=== PATIENT | male | born 1975 | race Caucasian/White ===

== ENCOUNTER 2023-01-09 00:02 | Emergency (ER) | payer OTHER ==
--- OUTSIDE RECORDS SUMMARY | 2023-01-09 00:14 | XMS REPORT | Continuity of Care Document ---
:1975 Author Organization [facility] t Address [address] [place] [address] [address] [place] [address] Care Team Providers Name Role Phone Carmella Moise MD Primary Care Physician [phone] Carmella Moise MD Attending Clinician [phone] CARMELLA MOISE Attending Clinician Unavailable Willa Gallardo MD Attending Clinician WILLA GALLARDO Attending Clinician Unavailable Doctor Unassigned, [place] Attending Clinician Unavailable May Attending Clinician Unavailable Cassie Mayo Attending Clinician [phone] CASSIE WOO Attending Clinician Unavailable Unknown, Attending Attending Clinician Unavailable CLARK WRIGHT Attending Clinician Unavailable ODETTE LOUIS Attending Clinician Unavailable Zach Davila MD Attending Clinician ZACH DAVILA Attending Clinician Unavailable Odette Beckford Attending Clinician [facility] Attending Clinician Unavailable Tonya Archer RN Attending Clinician Unavailable LISA NEELY Attending Clinician Unavailable Only, [facility] Attending Clinician Unavailable UNKNOWN, ATTENDING Attending Clinician Unavailable LATISHA WARREN Attending Clinician Unavailable Therapy, [facility] Attending Clinician Unavailable Zehra Lepe MD Attending Clinician ZEHRA LEPE Attending Clinician Unavailable Binta White Attending Clinician PEMA VALVERDE Attending Clinician Unavailable BELLA GARCIA Attending Clinician Unavailable MICHELLE COVARRUBIAS Attending Clinician Unavailable ZAC SAMPSON Attending Clinician Unavailable Nadia Ortega MD, Danisha Attending Clinician ISAURA GATES Attending Clinician Unavailable ZACH DAVILA Admitting Clinician Unavailable Payers Payer Name Policy Type Policy Number Effective Date Expiration Date S ource Problems Condition Condition Condition Status Onset Resolution Last Treating Co mments Source Name Details Category Date Date Treatment Clinician Date Nocturia Nocturia Disease Active 2015-02 Unive rs 0-01 ity of 00:00: [place] 00 [facility] Insomnia Insomnia Disease Active 2015-02 Unive rs 0-01 ity of 00:00: [address] Allergies, Adverse Reactions, Alerts Allergy Allergy Status Severity Reaction(s) Onset Inactive Treating Comm ents Source Name Type Date Date Clinician NO KNOWN Drug Active Univers ALLERGIE Class ity of S [facility] Social History Social Habit Start Date Stop Date Quantity Comments Source Gender identity Universit y of [facility] Sexual orientation Univer sity of [facility] History SDOH University o [facility] University o f Alcohol Std Drinks [facility] History SDOH University o f Alcohol Binge [facility] [place] History of Social 2022-09-05 2022-09-05 Univers ity of function 00:00:00 00:00:00 [facility] Alcohol intake 2022-09-05 2022-09-05 Current drinker Unive rsity of 00:00:00 00:00:[address] [facility] [place] (finding) Branch Exposure to 2022-04-14 2022-04-24 Not sure University of SARS-CoV-2 (event) 00:00:00 12:54:00 [facility] Cigarettes smoked 2021-11-14 2021-11-14 Univers ity of current (pack per 00:00:00 00:00:00 [facility] ) - Reported Branch Cigarette 2021-11-14 2021-11-14 University of pack-years 00:00:00 00:00:00 [facility] Tobacco use and 2021-11-14 2021-11-14 Smokeless Universit y of exposure 00:00:00 00:00:00 tobacco [facility] [place] Alcohol Comment 2018-06-10 2018-06-10 4-5 mixed drinks Uni versity of 00:00:00 00:00:00 2x/year [facility] History of tobacco 2012-02-26 Cigarette Smoker University of use 00:00:00 [facility] Sex Ass[birth year] Universit y of 00:00:00 00:00:00 [facility] Smoking Status Start Date Stop Date Source Ex-smoker 2021-11-14 00:00:00 2021-11-14 00:00:[address] [facility] Medications Ordered Filled Start Stop Current Ordering Indication Dosage Frequency Signature Comments Components Source Medication Medication Date Date Medication? Clinician (SIG) Name Name ALPRAZolam 2022-02 Yes [id number] .5mg Take 1 U nivers 0.5 mg 1-10 tablet by ity of tablet 00:00: mouth at [place] 00 bedtime as Medical needed for Branch Other (anxiousne ss). ALPRAZolam 2022-02 Yes [id number] .5mg Take 1 U nivers 0.5 mg 1-10 tablet by ity of tablet 00:00: mouth at [place] 00 bedtime as Medical needed for Branch Other (anxiousne ss). phentermine 2022-02 Yes [id number] 37.5mg Take 1 Univers 37.5 mg 0-22 capsule by ity of capsule 00:00: mouth [place] 00 every Medical morning. Branch phentermine 2022-02 Yes [id number] 37.5mg Take 1 Univers 37.5 mg 0-22 capsule by ity of capsule 00:00: mouth [place] 00 every Medical morning. Branch phentermine 2022-02 Yes [id number] 37.5mg Take 1 Univers 37.5 mg 0-22 capsule by ity of capsule 00:00: mouth [place] 00 every Medical morning. Branch valACYclovi Yes [id number] 500mg Take 1 Univers r (VALTREX) 9-07 tablet by ity of 500 mg 00:00: mouth in [place] tablet 00 the Medical morning. Branch phentermine Yes [id number] 37.5mg Take 1 Univers 37.5 mg 9-07 capsule by ity of capsule 00:00: mouth [place] 00 every Medical morning. Branch valACYclovi Yes [id number] 500mg Take 1 Univers r (VALTREX) 9-07 tablet by ity of 500 mg 00:00: mouth in [place] tablet 00 the Medical morning. Branch phentermine 2022-0 Yes [id number] 37.5mg Take 1 Univers 37.5 mg 9-07 capsule by ity of capsule 00:00: mouth [place] 00 every Medical morning. Branch valACYclovi 2022-0 Yes [id number] 500mg Take 1 Univers r (VALTREX) 9-07 tablet by ity of 500 mg 00:00: mouth in [place] tablet 00 the Medical morning. Branch valACYclovi 2022-0 Yes [id number] 500mg Take 1 Univers r (VALTREX) 9-07 tablet by ity of 500 mg 00:00: mouth in [place] tablet 00 the Medical morning. Branch valACYclovi 2022-0 Yes [id number] 500mg Take 1 Univers r (VALTREX) 9-07 tablet by ity of 500 mg 00:00: mouth in [place] tablet 00 the Medical morning. Branch phentermine 2022- No [id number] 37.5mg Take 1 Univers 37.5 mg 9-07 10-21 capsule by ity o f capsule 00:00: 00:00 mouth [place] 00 :00 every Medical morning. Branch ALPRAZolam 2022-0 Yes [id number] .5mg Take 1 U nivers 0.5 mg 9-01 tablet by ity of tablet 00:00: mouth at [place] 00 bedtime as Medical needed for Branch Other (anxiousne ss). ALPRAZolam 2022-0 Yes [id number] .5mg Take 1 U nivers 0.5 mg 9-01 tablet by ity of tablet 00:00: mouth at [place] 00 bedtime as Medical needed for Branch Other (anxiousne ss). ALPRAZolam 2022-0 Yes [id number] .5mg Take 1 U nivers 0.5 mg 9-01 tablet by ity of tablet 00:00: mouth at [place] 00 bedtime as Medical needed for Branch Other (anxiousne ss). ALPRAZolam 2022-0 Yes [id number] .5mg Take 1 U nivers 0.5 mg 9-01 tablet by ity of tablet 00:00: mouth at [place] 00 bedtime as Medical needed for Branch Other (anxiousne ss). ALPRAZolam 2022-0 2023- No [id number] .5mg Take 1 Univers 0.5 mg 9-01 11-09 tablet by ity of tablet 00:00: 00:00 mouth at [place] 00 :00 bedtime as Medical needed for Branch Other (anxiousne ss). phentermine 3-0 Yes [id number] 37.5mg Take 1 Univers 37.5 mg 8-09 capsule by ity of capsule 00:00: mouth [place] 00 every Medical morning. Branch phentermine 3-0 Yes [id number] 37.5mg Take 1 Univers 37.5 mg 8-09 capsule by ity of capsule 00:00: mouth [place] 00 every Medical morning. Branch phentermine 2023-0 Yes [id number] 37.5mg Take 1 Univers 37.5 mg 8-09 capsule by ity of capsule 00:00: mouth [place] 00 every Medical morning. Branch phentermine 3-0 Yes [id number] 37.5mg Take 1 Univers 37.5 mg 8-09 capsule by ity of capsule 00:00: mouth [place] 00 every Medical morning. Branch phentermine 3-0 3- No [id number] 37.5mg Take 1 Univers 37.5 mg 8-09 09-06 capsule by ity o f capsule 00:00: 00:00 mouth [place] 00 :00 every Medical morning. Branch phentermine 3-0 Yes [id number] 37.5mg Take 1 Univers 37.5 mg 7-27 capsule by ity of capsule 00:00: mouth [place] 00 every Medical morning. Branch phentermine 3-0 Yes [id number] 37.5mg Take 1 Univers 37.5 mg 7-27 capsule by ity of capsule 00:00: mouth [place] 00 every Medical morning. Branch phentermine 3-0 Yes [id number] 37.5mg Take 1 Univers 37.5 mg 7-27 capsule by ity of capsule 00:00: mouth [place] 00 every Medical morning. Branch phentermine 3-0 2023- No [id number] 37.5mg Take 1 Univers 37.5 mg 7-27 08-09 capsule by ity o f capsule 00:00: 00:00 mouth [place] 00 :00 every Medical morning. Branch phentermine 3-0 Yes [id number] 15mg Take 1 Univers 15 mg 7-14 capsule by ity of capsule 00:00: mouth [place] 00 every Medical morning. Branch phentermine 2023-0 Yes [id number] 15mg Take 1 Univers 15 mg 7-14 capsule by ity of capsule 00:00: mouth [place] 00 every Medical morning. Branch phentermine 0 Yes [id number] 15mg Take 1 Univers 15 mg 7-14 capsule by ity of capsule 00:00: mouth [place] 00 every Medical morning. Branch phentermine 2022- No [id number] 15mg Take 1 Univers 15 mg 7-14 08-09 capsule by ity of capsule 00:00: 00:00 mouth [place] 00 :00 every Medical morning. Branch ALPRAZolam Yes [id number] .5mg Take 1 U nivers 0.5 mg 7-12 tablet by ity of tablet 00:00: mouth at [place] 00 bedtime as Medical needed for Branch Other (anxiousne ss). valACYclovi Yes [id number] 500mg Take 1 Univers r (VALTREX) 7-12 tablet by ity of 500 mg 00:00: mouth in [place] tablet 00 the Medical morning. Branch gabapentin Yes [id number] 300mg Take 1 Univers 300 mg 7-12 capsule by ity of capsule 00:00: mouth at [place] 00 bedtime. Medical Branch ALPRAZolam Yes [id number] .5mg Take 1 U nivers 0.5 mg 7-12 tablet by ity of tablet 00:00: mouth at [place] 00 bedtime as Medical needed for Branch Other (anxiousne ss). valACYclovi Yes [id number] 500mg Take 1 Univers r (VALTREX) 7-12 tablet by ity of 500 mg 00:00: mouth in [place] tablet 00 the Medical morning. Branch gabapentin Yes [id number] 300mg Take 1 Univers 300 mg 7-12 capsule by ity of capsule 00:00: mouth at [place] 00 bedtime. Medical Branch ALPRAZolam Yes [id number] .5mg Take 1 U nivers 0.5 mg 7-12 tablet by ity of tablet 00:00: mouth at [place] 00 bedtime as Medical needed for Branch Other (anxiousne ss). valACYclovi Yes [id number] 500mg Take 1 Univers r (VALTREX) 7-12 tablet by ity of 500 mg 00:00: mouth in [place] tablet 00 the Medical morning. Branch gabapentin 2022-0 Yes [id number] 300mg Take 1 Univers 300 mg 7-12 capsule by ity of capsule 00:00: mouth at [place] 00 bedtime. Medical Branch ALPRAZolam 0 Yes [id number] .5mg Take 1 U nivers 0.5 mg 7-12 tablet by ity of tablet 00:00: mouth at [place] 00 bedtime as Medical needed for Branch Other (anxiousne ss). valACYclovi 2022-0 Yes [id number] 500mg Take 1 Univers r (VALTREX) 7-12 tablet by ity of 500 mg 00:00: mouth in [place] tablet 00 the Medical morning. Branch gabapentin 0 Yes [id number] 300mg Take 1 Univers 300 mg 7-12 capsule by ity of capsule 00:00: mouth at [place] 00 bedtime. Medical Branch ALPRAZolam Yes [id number] .5mg Take 1 U nivers 0.5 mg 7-12 tablet by ity of tablet 00:00: mouth at [place] 00 bedtime as Medical needed for Branch Other (anxiousne ss). valACYclovi 0 Yes [id number] 500mg Take 1 Univers r (VALTREX) 7-12 tablet by ity of 500 mg 00:00: mouth in [place] tablet 00 the Medical morning. Branch gabapentin 0 Yes [id number] 300mg Take 1 Univers 300 mg 7-12 capsule by ity of capsule 00:00: mouth at [place] 00 bedtime. Medical Branch ALPRAZolam 0 Yes [id number] .5mg Take 1 U nivers 0.5 mg 7-12 tablet by ity of tablet 00:00: mouth at [place] 00 bedtime as Medical needed for Branch Other (anxiousne ss). valACYclovi 2022-0 Yes [id number] 500mg Take 1 Univers r (VALTREX) 7-12 tablet by ity of 500 mg 00:00: mouth in [place] tablet 00 the Medical morning. Branch gabapentin 0 Yes [id number] 300mg Take 1 Univers 300 mg 7-12 capsule by ity of capsule 00:00: mouth at [place] 00 bedtime. Medical Branch ALPRAZolam 2022-0 Yes [id number] .5mg Take 1 U nivers 0.5 mg 7-12 tablet by ity of tablet 00:00: mouth at [place] 00 bedtime as Medical needed for Branch Other (anxiousne ss). valACYclovi 2022-0 Yes [id number] 500mg Take 1 Univers r (VALTREX) 7-12 tablet by ity of 500 mg 00:00: mouth in [place] tablet 00 the Medical morning. Branch gabapentin 2022-0 Yes [id number] 300mg Take 1 Univers 300 mg 7-12 capsule by ity of capsule 00:00: mouth at [place] 00 bedtime. Medical Branch ALPRAZolam 2022-0 Yes [id number] .5mg Take 1 U nivers 0.5 mg 7-12 tablet by ity of tablet 00:00: mouth at [place] 00 bedtime as Medical needed for Branch Other (anxiousne ss). valACYclovi 2022-0 Yes [id number] 500mg Take 1 Univers r (VALTREX) 7-12 tablet by ity of 500 mg 00:00: mouth in [place] tablet 00 the Medical morning. Branch gabapentin 2022-0 Yes [id number] 300mg Take 1 Univers 300 mg 7-12 capsule by ity of capsule 00:00: mouth at [place] 00 bedtime. Medical Branch valACYclovi 2022-0 Yes [id number] 500mg Take 1 Univers r (VALTREX) 7-12 tablet by ity of 500 mg 00:00: mouth in [place] tablet 00 the Medical morning. Branch gabapentin 2022-0 Yes [id number] 300mg Take 1 Univers 300 mg 7-12 capsule by ity of capsule 00:00: mouth at [place] 00 bedtime. Medical Branch gabapentin 2022-0 Yes [id number] 300mg Take 1 Univers 300 mg 7-12 capsule by ity of capsule 00:00: mouth at [place] 00 bedtime. Medical Branch gabapentin 2022-0 Yes [id number] 300mg Take 1 Univers 300 mg 7-12 capsule by ity of capsule 00:00: mouth at [place] 00 bedtime. Medical Branch gabapentin 2022-0 Yes [id number] 300mg Take 1 Univers 300 mg 7-12 capsule by ity of capsule 00:00: mouth at [place] 00 bedtime. Medical Branch gabapentin 2022-0 Yes [id number] 300mg Take 1 Univers 300 mg 7-12 capsule by ity of capsule 00:00: mouth at [place] 00 bedtime. Medical Branch gabapentin 2022-0 Yes [id number] 300mg Take 1 Univers 300 mg 7-12 capsule by ity of capsule 00:00: mouth at [place] 00 bedtime. Medical Branch valACYclovi 2022- No [id number] 500mg Take 1 Univers r (VALTREX) 09-05 tablet by it y of 500 mg 00:00: 00:00 mouth in [place] tablet 00 :00 the Medical morning. Branch ALPRAZolam 2022- No [id number] .5mg Take 1 Univers 0.5 mg 09-05 tablet by ity of tablet 00:00: 00:00 mouth at [place] 00 :00 bedtime as Medical needed for Branch Other (anxiousne ss). sulfamethox 2022- No [id number] 1{tbl} Take 1 Univers azole-trime 7-12 07-20 tablet by it y of thoprim 00:00: 04:59 mouth in [place] (BACTRIM 00 :00 the Medical DS) 800-160 morning Branc h mg per and 1 tablet tablet in the evening. Do all this for 7 days. sulfamethox 2022- No [id number] 1{tbl} Take 1 Univers azole-trime 7-12 07-20 tablet by it y of thoprim 00:00: 04:59 mouth in [place] (BACTRIM 00 :00 the Medical DS) 800-160 morning Branc h mg per and 1 tablet tablet in the evening. Do all this for 7 days. sulfamethox 2022- No [id number] 1{tbl} Take 1 Univers azole-trime 7-12 07-20 tablet by it y of thoprim 00:00: 04:59 mouth in [place] (BACTRIM 00 :00 the Medical DS) 800-160 morning Branc h mg per and 1 tablet tablet in the evening. Do all this for 7 days. sulfamethox 2022- No [id number] 1{tbl} Take 1 Univers azole-trime 7-12 07-20 tablet by it y of thoprim 00:00: 04:59 mouth in [place] (BACTRIM 00 :00 the Medical DS) 800-160 morning Branc h mg per and 1 tablet tablet in the evening. Do all this for 7 days. semaglutide 2022- No [id number] .25mg inject Univers , weight 7-12 07-14 0.25 mg ity of loss, 00:00: 00:00 under the [place] ([facility]) 00 :00 skin Medical 0.25 mg/0.5 weekly. Branc h mL PnIj SC injection semaglutide 3-0 3- No [id number] .25mg inject Univers , weight 7-12 07-14 0.25 mg ity of loss, 00:00: 00:00 under the [place] ([facility]) 00 :00 skin Medical 0.25 mg/0.5 weekly. Branc h mL PnIj SC injection semaglutide 3-0 3- No [id number] .25mg inject Univers , weight 7-12 07-14 0.25 mg ity of loss, 00:00: 00:00 under the [place] () 00 :00 skin Medical 0.25 mg/0.5 weekly. Branc h mL PnIj SC injection phentermine 2023-0 Yes [id number] 37.5mg Take 1 Univers 37.5 mg 3-30 capsule by ity of capsule 00:00: mouth [place] 00 every Medical morning. Branch phentermine 2023-0 Yes [id number] 37.5mg Take 1 Univers 37.5 mg 3-30 capsule by ity of capsule 00:00: mouth [place] 00 every Medical morning. Branch phentermine 2023-0 2023- No [id number] 37.5mg Take 1 Univers 37.5 mg 3-30 07-12 capsule by ity o f capsule 00:00: 00:00 mouth [place] 00 :00 every Medical morning. Branch phentermine 2023-0 2023- No [id number] 37.5mg Take 1 Univers 37.5 mg 3-30 07-12 capsule by ity o f capsule 00:00: 00:00 mouth [place] 00 :00 every Medical morning. Branch methylPREDN 2023-0 Yes [id number] Take by Univers ISolone 2-28 mouth ity of (MEDROL, 00:00: SEE-INSTRU [place] CASSANDRA,) 4 mg 00 CTIONS. Medica l tablets follow Branch package directions methylPREDN 2023-0 Yes [id number] Take by Univers ISolone 2-28 mouth ity of (MEDROL, 00:00: SEE-INSTRU [place] CASSANDRA,) 4 mg 00 CTIONS. Medica l tablets follow Branch package directions methylPREDN 3-0 Yes [id number] Take by [facility] ISolone 2-28 mouth ity of (MEDROL, 00:00: SEE-INSTRU [place] CASSANDRA,) 4 mg 00 CTIONS. Medica l tablets follow Branch package directions methylPREDN 3-0 Yes [id number] [facility] (MEDROL, 00:00: SEE-INSTRU [place]AN[place],) 4 mg 00 CTIONS. Medica l tablets follow Branch package directions methylPREDN 3-0 Yes [id number] [facility]y [facility] (MEDROL, 00:00: SEE-INSTRU [place],) 4 mg 00 CTIONS. Medica l tablets follow Branch package directions methylPREDN 3-0 Yes [id number] Take by [facility] ISolone 2-28 mouth ity of (MEDROL, 00:00: SEE-INSTRU [place]AN[place],) 4 mg 00 CTIONS. Medica l tablets follow Branch package directions methylPREDN 3-0 Yes [id number] Take by [facility] 2-28 mouth ity of (MEDROL, 00:00: SEE-INSTRU [place]AN[place],) 4 mg 00 CTIONS. Medica l tablets follow Branch package directions methylPREDN 3-0 2023- No [id number] Take by [facility] 2-28 07-12 mouth ity of (MEDROL, 00:00: 00:[place] 4 mg 00 :00 CTIONS. Medica l tablets follow Branch package directions methylPREDN 3-0 2023- No [id number] Take by [facility] 2-28 07-12 mouth ity of (MEDROL, 00:00: 00:[place] CASSANDRA[place] 4 mg 00 :00 CTIONS. Medica l tablets follow Branch package directions phentermine 2022-0 Yes [id number] 37.5mg Take 1 Univers 37.5 mg 2-26 capsule by ity of capsule 00:00: mouth [place] 00 every Medical morning. Branch valACYclovi 2022-0 Yes [id number] 500mg Take 1 Univers r (VALTREX) 2-26 tablet by ity of 500 mg 00:00: mouth in [place] tablet 00 the Medical morning. Branch phentermine 3-0 Yes [id number] 37.5mg Take 1 Univers 37.5 mg 2-26 capsule by ity of capsule 00:00: mouth [place] 00 every Medical morning. Branch valACYclovi 2022-0 Yes [id number] 500mg Take 1 Univers r (VALTREX) 2-26 tablet by ity of 500 mg 00:00: mouth in [place] tablet 00 the Medical morning. Branch phentermine 2022-0 Yes [id number] 37.5mg Take 1 Univers 37.5 mg 2-26 capsule by ity of capsule 00:00: mouth [place] 00 every Medical morning. Branch valACYclovi 2022-0 Yes [id number] 500mg Take 1 Univers r (VALTREX) 2-26 tablet by ity of 500 mg 00:00: mouth in [place] tablet 00 the Medical morning. Branch valACYclovi 2022-0 Yes [id number] 500mg Take 1 Univers r (VALTREX) 2-26 tablet by ity of 500 mg 00:00: mouth in [place] tablet 00 the Medical morning. Branch valACYclovi 2022-0 Yes [id number] 500mg Take 1 Univers r (VALTREX) 2-26 tablet by ity of 500 mg 00:00: mouth in [place] tablet 00 the Medical morning. Branch phentermine 2022-0 Yes [id number] 37.5mg Take 1 Univers 37.5 mg 2-26 capsule by ity of capsule 00:00: mouth [place] 00 every Medical morning. Branch valACYclovi 2022-0 Yes [id number] 500mg Take 1 Univers r (VALTREX) 2-26 tablet by ity of 500 mg 00:00: mouth in [place] tablet 00 the Medical morning. Branch phentermine 3-0 Yes [id number] 37.5mg Take 1 Univers 37.5 mg 2-26 capsule by ity of capsule 00:00: mouth [place] 00 every Medical morning. Branch valACYclovi 2022-0 Yes [id number] 500mg Take 1 Univers r (VALTREX) 2-26 tablet by ity of 500 mg 00:00: mouth in [place] tablet 00 the Medical morning. Branch phentermine 3-0 Yes [id number] 37.5mg Take 1 Univers 37.5 mg 2-26 capsule by ity of capsule 00:00: mouth [place] 00 every Medical morning. Branch valACYclovi Yes [id number] 500mg Take 1 Univers r (VALTREX) 2-26 tablet by ity of 500 mg 00:00: mouth in [place] tablet 00 the Medical morning. Branch phentermine Yes [id number] 37.5mg Take 1 Univers 37.5 mg 2-26 capsule by ity of capsule 00:00: mouth [place] 00 every Medical morning. Branch valACYclovi Yes [id number] 500mg Take 1 Univers r (VALTREX) 2-26 tablet by ity of 500 mg 00:00: mouth in [place] tablet 00 the Medical morning. Branch valACYclovi 2022- No [id number] 500mg Take 1 Univers r (VALTREX) 2-26 07-12 tablet by it y of 500 mg 00:00: 00:00 mouth in [place] tablet 00 :00 the Medical morning. Branch valACYclovi 2022- No [id number] 500mg Take 1 Univers r (VALTREX) 2-26 07-12 tablet by it y of 500 mg 00:00: 00:00 mouth in [place] tablet 00 :00 the Medical morning. Branch phentermine 2022- No [id number] 37.5mg Take 1 Univers 37.5 mg 2-26 03-28 capsule by ity o f capsule 00:00: 00:00 mouth [place] 00 :00 every Medical morning. Branch phentermine Yes [id number] 37.5mg Take 1 Univers 37.5 mg 1-26 capsule by ity of capsule 00:00: mouth [place] 00 every Medical morning. Branch phentermine 2022- No [id number] 37.5mg Take 1 Univers 37.5 mg 1-26 02-22 capsule by ity o f capsule 00:00: 00:00 mouth [place] 00 :00 every Medical morning. Branch phentermine 2022- No [id number] 37.5mg Take 1 Univers 37.5 mg 1-26 02-22 capsule by ity o f capsule 00:00: 00:00 mouth [place] 00 :00 every Medical morning. Branch ALPRAZolam Yes [id number] .5mg Take 1 U nivers 0.5 mg 1-24 tablet by ity of tablet 00:00: mouth at [place] 00 bedtime as Medical needed for Branch Other (anxiousne ss). nystatin 2022-0 Yes [id number] Swish and Univers 100,000 1-24 spit 5 ml ity of unit/mL 00:00: three [place] suspension 00 times Medical daily for Branch 1 week ALPRAZolam 2022-0 Yes [id number] .5mg Take 1 U nivers 0.5 mg 1-24 tablet by ity of tablet 00:00: mouth at [place] 00 bedtime as Medical needed for Branch Other (anxiousne ss). nystatin 2022-0 Yes [id number] Swish and Univers 100,000 1-24 spit 5 ml ity of unit/mL 00:00: three [place] suspension 00 times Medical daily for Branch 1 week ALPRAZolam 2022-0 Yes [id number] .5mg Take 1 U nivers 0.5 mg 1-24 tablet by ity of tablet 00:00: mouth at [place] 00 bedtime as Medical needed for Branch Other (anxiousne ss). nystatin 2022-0 Yes [id number] Swish and Univers 100,000 1-24 spit 5 ml ity of unit/mL 00:00: three [place] suspension 00 times Medical daily for Branch 1 week ALPRAZolam 2022-0 Yes [id number] .5mg Take 1 U nivers 0.5 mg 1-24 tablet by ity of tablet 00:00: mouth at [place] 00 bedtime as Medical needed for Branch Other (anxiousne ss). nystatin 2022-0 Yes [id number] Swish and Univers 100,000 1-24 spit 5 ml ity of unit/mL 00:00: three [place] suspension 00 times Medical daily for Branch 1 week ALPRAZolam 2022-0 Yes [id number] .5mg Take 1 U nivers 0.5 mg 1-24 tablet by ity of tablet 00:00: mouth at [place] 00 bedtime as Medical needed for Branch Other (anxiousne ss). phentermine 2022-0 Yes [id number] 15mg Take 1 U nivers 15 mg 1-24 capsule by ity of capsule 00:00: mouth [place] 00 every Medical morning. Branch nystatin 2022-0 Yes [id number] Swish and Univers 100,000 1-24 spit 5 ml ity of unit/mL 00:00: three [place] suspension 00 times Medical daily for Branch 1 week valACYclovi 2022-0 Yes [id number] 500mg Take 1 Univers r (VALTREX) 1-24 tablet by ity of 500 mg 00:00: mouth in [place] tablet 00 the Medical morning. Branch ALPRAZolam 0 Yes [id number] .5mg Take 1 U nivers 0.5 mg 1-24 tablet by ity of tablet 00:00: mouth at [place] 00 bedtime as Medical needed for Branch Other (anxiousne ss). nystatin 2022-0 Yes [id number] [facility] 100,000 1-24 spit 5 ml ity of unit/mL 00:00: three [place] suspension 00 times Medical daily for Branch 1 week valACYclovi 2022-0 Yes [id number] 500mg Take 1 [facility] r (VALTREX) 1-24 tablet by ity of 500 mg 00:00: mouth in [place] tablet 00 the Medical morning. Branch ALPRAZolam Yes [id number] .5mg Take 1 [facility] nivers 0.5 mg 1-24 tablet by ity of tablet 00:00: mouth at [place] 00 bedtime as Medical needed for Branch Other (anxiousne ss). nystatin 2022-0 Yes [id number] [facility] 100,000 1-24 spit 5 ml ity of unit/mL 00:00: three [place] suspension 00 times Medical daily for Branch 1 week ALPRAZolam 0 Yes [id number] .5mg Take 1 [facility] nivers 0.5 mg 1-24 tablet by ity of tablet 00:00: mouth at [place] 00 bedtime as Medical needed for Branch Other (anxiousne ss). nystatin 2022-0 Yes [id number] [facility] 100,000 1-24 spit 5 ml ity of unit/mL 00:00: three [place] suspension 00 times Medical daily for Branch 1 week ALPRAZolam 2022-0 Yes [id number] .5mg Take 1 [facility] nivers 0.5 mg 1-24 tablet by ity of tablet 00:00: mouth at [place] 00 bedtime as Medical needed for Branch Other (anxiousne ss). nystatin 2022-0 Yes [id number] [facility] 100,000 1-24 spit 5 ml ity of unit/mL 00:00: three [place] suspension 00 times Medical daily for Branch 1 week ALPRAZolam 2022-0 Yes [id number] .5mg Take 1 [facility] nivers 0.5 mg 1-24 tablet by ity of tablet 00:00: mouth at [place] 00 bedtime as Medical needed for Branch Other (anxiousne ss). nystatin 2022-0 Yes [id number] [facility] 100,000 1-24 spit 5 ml ity of unit/mL 00:00: three [place] suspension 00 times Medical daily for Branch 1 week ALPRAZolam 2022-0 Yes [id number] .5mg Take 1 [facility] n[facility] 0.5 mg 1-24 tablet by ity of tablet 00:00: mouth at [place] 00 bedtime as Medical needed for Branch Other (anxiousne ss). nystatin 2022-0 Yes [id number] [facility] 100,000 1-24 spit 5 ml ity of unit/mL 00:00: three [place] suspension 00 times Medical daily for Branch 1 week ALPRAZolam 2022-0 Yes [id number] .5mg Take 1 [facility] 0.5 mg 1-24 tablet by ity of tablet 00:00: mouth at [place] 00 bedtime as Medical needed for Branch Other (anxiousne ss). nystatin 2022-0 Yes [id number] [facility] 100,000 1-24 spit 5 ml ity of unit/mL 00:00: three [place] suspension 00 times Medical daily for Branch 1 week ALPRAZolam 2022-0 3- No [id number] .5mg Take 1 [facility] 0.5 mg 1-24 07-12 tablet by ity of tablet 00:00: 00:00 mouth at [place] 00 :00 bedtime as Medical needed for Branch Other (anxiousne ss). nystatin 2022-0 2023- No [id number] [facility] 100,000 1-24 07-12 spit 5 ml ity of unit/mL 00:00: 00:00 three [place] suspension 00 :00 times Medical daily for Branch 1 week ALPRAZolam 2022-0 2023- No [id number] .5mg Take 1 [facility] 0.5 mg 1-24 07-12 tablet by ity of tablet 00:00: 00:00 mouth at [place] 00 :00 bedtime as Medical needed for Branch Other (anxiousne ss). nystatin 2022-0 3- No [id number] [facility] 100,000 1-24 07-12 spit 5 ml ity of unit/mL 00:00: 00:00 three [place] suspension 00 :00 times Medical daily for Branch 1 week valACYclovi 2022-2022- No [id number] 500mg Take 1 [facility] r (VALTREX) 03-20 tablet by it y of 500 mg 00:00: 00:00 mouth in [place] tablet 00 :00 the Medical morning. Branch valACYclovi 0 2022- No [id number] 500mg Take 1 [facility] r (VALTREX) 03-20 tablet by it y of 500 mg 00:00: 00:00 mouth in [place] tablet 00 :00 the Medical morning. Branch phentermine 2022- No [id number] 15mg Take 1 [facility] 15 mg 03-20 capsule by ity of capsule 00:00: 00:00 mouth [place] 00 :00 every Medical morning. Branch nystatin Yes [id number] [facility] 100,000 1-23 spit 5 ml ity of unit/mL 00:00: three [place] suspension 00 times Medical daily for Branch 1 week phentermine Yes [id number] 15mg Take 1 [facility] nivers 15 mg 1-23 capsule by ity of capsule 00:00: mouth [place] 00 every Medical morning. Branch ALPRAZolam Yes [id number] .5mg Take 1 [facility] 0.5 mg 1-23 tablet by ity of tablet 00:00: mouth at [place] 00 bedtime as Medical needed for Branch Other (anxiousne ss). nystatin Yes [id number] [facility] 100,000 1-23 spit 5 ml ity of unit/mL 00:00: three [place] suspension 00 times Medical daily for Branch 1 week phentermine Yes [id number] 15mg Take 1 [facility] nivers 15 mg 1-23 capsule by ity of capsule 00:00: mouth [place] 00 every Medical morning. Branch ALPRAZolam Yes [id number] .5mg Take 1 [facility] 0.5 mg 1-23 tablet by ity of tablet 00:00: mouth at [place] 00 bedtime as Medical needed for Branch Other (anxiousne ss). nystatin 2022- No [id number] [facility] 100,000 1-23 01-24 spit 5 ml ity of unit/mL 00:00: 00:00 three [place] suspension 00 :00 times Medical daily for Branch 1 week phentermine 2022- No [id number] 15mg Take 1 [facility] 15 mg 03-19 capsule by ity of capsule 00:00: 00:00 mouth [place] 00 :00 every Medical morning. Branch ALPRAZolam 2022- No [id number] .5mg Take 1 [facility] 0.5 mg 03-19 tablet by ity of tablet 00:00: 00:00 mouth at [place] 00 :00 bedtime as Medical needed for Branch Other (anxiousne ss). chlorhexidi 2021-02 Yes [id number] 15mL [facility] ne 0.12 % 1-30 spit out ity of mouthwash 00:00: [place] 00 the Medical morning Branch and 15 mL in the evening. chlorhexidi 2021-02 Yes [id number] 15mL [facility] ne 0.12 % 1-30 spit out it[facility] of mouthwash 00:00: [place] 00 the Medical morning Branch and 15 mL in the evening. chlorhexidi 2021-02 Yes [id number] 15mL [facility] ne 0.12 % 1-30 spit out it[facility] of mouthwash 00:00: [place] 00 the Medical morning Branch and 15 mL in the evening. chlorhexidi 2021-02 Yes [id number] 15mL [facility] ne 0.12 % 1-30 spit out it[facility] of mouthwash 00:00: [place] 00 the Medical morning Branch and 15 mL in the evening. chlorhexidi 2021-02 Yes [id number] 15mL [facility] ne 0.12 % 1-30 spit out it[facility] of mouthwash 00:00: [place] 00 the Medical morning Branch and 15 mL in the evening. chlorhexidi 2021-02 Yes [id number] 15mL [facility] ne 0.12 % 1-30 spit out it[facility] of mouthwash 00:00: [place] 00 the Medical morning Branch and 15 mL in the evening. chlorhexidi 2021-02 Yes [id number] 15mL [facility] ne 0.12 % 130 spit out it[facility] of mouthwash 00:00: [place] 00 the Medical morning Branch and 15 mL in the evening. chlorhexidi 2021-02 Yes [id number] 15mL [facility] ne 0.12 % -30 spit out it[facility] of mouthwash 00:00: [place] 00 the Medical morning Branch and 15 mL in the evening. chlorhexidi 2021-02 Yes [id number] 15mL [facility] ne 0.12 % 1-30 spit out it[facility] of mouthwash 00:00: [place] 00 the Medical morning Branch and 15 mL in the evening. chlorhexidi 2021-02- No [id number] 15mL [facility] ne 0.12 % 03-26 spit out ity o f mouthwash 00:00: 00:00 15 mL in [place] 00 :00 the Medical morning Branch and 15 mL in the evening. chlorhexidi 2021-02- No [id number] 15mL [facility] ne 0.12 % 03-26 spit out ity o f mouthwash 00:00: 00:00 15 mL in [place] 00 :00 the Medical morning Branch and 15 mL in the evening. cetirizine 2021-02- No [id number] 10mg Take 1 [facility] (ZYRTEC) 10 03-26 tablet by it y of mg tablet 00:00: 05:59 mouth in [place] 00 :00 the Medical morning Branch for 30 days. cetirizine 2021-02- No [id number] 10mg Take 1 [facility] (ZYRTEC) 10 03-2631 tablet by it y of mg tablet 00:00: 05:59 mouth in [place] 00 :00 the Medical morning Branch for 30 days. cetirizine 2021-02- No [id number] 10mg Take 1 [facility] (ZYRTEC) 10 03-2631 tablet by it y of mg tablet 00:00: 05:59 mouth in [place] 00 :00 the Medical morning Branch for 30 days. fluticasone 2021-02- No [id number] 1{spray Use 1 [facility] propionate 1-30 1208 } [place] in ity of (FLONASE 00:00: 05:59 each [place] ALLERGY 00 :00 nostril in Medica l RELIEF) 50 the Branch mcg/actuati morning on nasal for 7 spray days. fluticasone 2021-02- No [id number] 1{spray Use 1 [facility] propionate -30 12-08 } [place] in ity of (FLONASE 00:00: 05:59 each [place] ALLERGY 00 :00 nostril in Medica l RELIEF) 50 the Branch mcg/actuati morning on nasal for 7 spray days. valACYclovi 2021-02 Yes [id number] 500mg Take 1 [facility] r (VALTREX) 1-07 tablet by ity of 500 mg 00:00: mouth in [place] tablet 00 the Medical morning. [place] valACYclovi 2021-02 Yes [id number] 500mg Take 1 [facility] r (VALTREX) 1-07 tablet by ity of 500 mg 00:00: mouth in [place] tablet 00 the Medical morning. [place] valACYclovi 2021-02 Yes [id number] 500mg Take 1 [facility] r (VALTREX) 1-07 tablet by ity of 500 mg 00:00: mouth in [place] tablet 00 the Medical morning. Branch valACYclovi 2021-02 Yes [id number] 500mg Take 1 [facility] r (VALTREX) 1-07 tablet by ity of 500 mg 00:00: mouth in [place] tablet 00 the Medical morning. [place] valACYclovi 2021-02 Yes [id number] 500mg Take 1 [facility] r (VALTREX) 1-07 tablet by ity of 500 mg 00:00: mouth in [place] tablet 00 the Medical morning. Branch valACYclovi 2021-02 Yes [id number] 500mg Take 1 [facility] r (VALTREX) 1-07 tablet by ity of 500 mg 00:00: mouth in [place] tablet 00 the Medical morning. Branch valACYclovi 2021-02 Yes [id number] 500mg Take 1 [facility] r (VALTREX) 1-07 tablet by ity of 500 mg 00:00: mouth in [place] tablet 00 the Medical morning. Branch valACYclovi 2021-02 Yes [id number] 500mg Take 1 [facility] r (VALTREX) 1-07 tablet by ity of 500 mg 00:00: mouth in [place] tablet 00 the Medical morning. Branch valACYclovi 2021-02 Yes [id number] 500mg Take 1 [facility] r (VALTREX) 1-07 tablet by ity of 500 mg 00:00: mouth in [place] tablet 00 the Medical morning. Branch valACYclovi 2021-02 Yes [id number] 500mg Take 1 [facility] r (VALTREX) 1-07 tablet by ity of 500 mg 00:00: mouth in [place] tablet 00 the Medical morning. Branch valACYclovi 2021-02 Yes [id number] 500mg Take 1 [facility] r (VALTREX) 1-07 tablet by ity of 500 mg 00:00: mouth in [place] tablet 00 the Medical morning. Branch valACYclovi 2021-02 Yes [id number] 500mg Take 1 [facility] r (VALTREX) 1-07 tablet by ity of 500 mg 00:00: mouth in [place] tablet 00 the Medical morning. Branch valACYclovi 2021-02 Yes [id number] 500mg Take 1 [facility] r (VALTREX) 1-07 tablet by ity of 500 mg 00:00: mouth in [place] tablet 00 the Medical morning. Branch valACYclovi 2021-02 Yes [id number] 500mg Take 1 [facility] r (VALTREX) 1-07 tablet by ity of 500 mg 00:00: mouth in [place] tablet 00 the Medical morning. Branch valACYclovi 2021-02 Yes [id number] 500mg Take 1 [facility] r (VALTREX) 1-07 tablet by ity of 500 mg 00:00: mouth in [place] tablet 00 the Medical morning. Branch valACYclovi 2021-023- No [id number] 500mg Take 1 [facility] r (VALTREX) 1-07 01-24 tablet by it y of 500 mg 00:00: 00:00 mouth in [place] tablet 00 :00 the Medical morning. Branch ALPRAZolam Yes TAKE 1 [facility] 0.5 mg 9-27 TABLET BY ity of tablet 00:00: MOUTH ONCE [place] 00 A DAY Medical NEEDED FOR Branch ANXIETY ALPRAZolam Yes TAKE 1 [facility] rs 0.5 mg 9-27 TABLET BY ity of tablet 00:00: MOUTH ONCE [place] 00 A DAY Medical NEEDED FOR Branch ANXIETY ALPRAZolam Yes TAKE 1 [facility] rs 0.5 mg 9-27 TABLET BY ity of tablet 00:00: MOUTH ONCE [place] 00 A DAY Medical NEEDED FOR Branch ANXIETY ALPRAZolam 2022-0 Yes TAKE 1 [facility] rs 0.5 mg 9-27 TABLET BY ity of tablet 00:00: MOUTH ONCE [place] 00 A DAY Medical NEEDED FOR Branch ANXIETY ALPRAZolam Yes TAKE 1 [facility] rs 0.5 mg 9-27 TABLET BY ity of tablet 00:00: MOUTH ONCE [place] 00 A DAY Medical NEEDED FOR Branch ANXIETY ALPRAZolam Yes TAKE 1 [facility] rs 0.5 mg 9-27 TABLET BY ity of tablet 00:00: MOUTH ONCE [place] 00 A DAY Medical NEEDED FOR Branch ANXIETY ALPRAZolam Yes TAKE 1 [facility] rs 0.5 mg 9-27 TABLET BY ity of tablet 00:00: MOUTH ONCE [place] 00 A DAY Medical NEEDED FOR Branch ANXIETY ALPRAZolam Yes TAKE 1 [facility] rs 0.5 mg 9-27 TABLET BY ity of tablet 00:00: MOUTH ONCE [place] 00 A DAY Medical NEEDED FOR Branch ANXIETY ALPRAZolam Yes TAKE 1 [facility] rs 0.5 mg 9-27 TABLET BY ity of tablet 00:00: MOUTH ONCE [place] 00 A DAY Medical NEEDED FOR Branch ANXIETY ALPRAZolam 2022- No TAKE 1 [facility] ers 0.5 mg 9-27 -23 TABLET BY ity of tablet 00:00: 00:00 [place]CE [place] 00 :00 A DAY Medical NEEDED FOR Branch ANXIETY ALPRAZolam 2022- No TAKE 1 [facility] ers 0.5 mg 9-27 -23 TABLET BY ity of tablet 00:00: 00:00 [place]TH [place]CE [place] 00 :00 A DAY Medical NEEDED FOR Branch ANXIETY ciprofloxac 2021- No [id number] 500mg Take 1 [facility] in HCl 500 9-20 10-19 tablet by ity of mg tablet 00:00: 04:59 mouth [place] 00 :00 every 12 Medical (twelve) Branch hours for 28 days. ciprofloxac 2021- No [id number] 500mg Take 1 [facility] in HCl 500 9-20 10-19 tablet by ity of mg tablet 00:00: 04:59 mouth [place] 00 :00 every 12 Medical (twelve) Branch hours for 28 days. tamsulosin 2021- No [id number] .4mg Take 1 [facility] 0.4 mg 24 8-15 -30 capsule by ity of hr capsule 00:00: 04:59 mouth at [place] 00 :00 bedtime Medical for 14 Branch days. tamsulosin 2021- No [id number] .4mg Take 1 [facility] 0.4 mg 24 8-15 -30 capsule by ity of hr capsule 00:00: 04:59 mouth at [place] 00 :00 bedtime Medical for 14 Branch days. sulfamethox 2021- No [id number] 1{tbl} Take 1 [facility] azole-trime 8-15 -26 tablet by it y of thoprim 00:00: 04:59 mouth in [place] 800-160 mg 00 :00 the Medical per tablet morning Branch and 1 tablet in the evening. Do all this for 10 days. sulfamethox 2021- No [id number] 1{tbl} Take 1 [facility] azole-trime 8-15 -26 tablet by it y of thoprim 00:00: 04:59 mouth in [place] 800-160 mg 00 :00 the Medical per tablet morning Branch and 1 tablet in the evening. Do all this for 10 days. valACYclovi Yes [id number] 2 g twice [facility] r (VALTREX) 6-23 daily for ity of 1 gram 00:00: 1 day with [place] tablet 00 onset of Medical cold sore. Branch valACYclovi Yes [id number] 2 g twice [facility] r (VALTREX) 6-23 daily for ity of 1 gram 00:00: 1 day with [place] tablet 00 onset of Medical cold sore. Branch valACYclovi Yes [id number] 2 g twice [facility] r (VALTREX) 6-23 daily for ity of 1 gram 00:00: 1 day with [place] tablet 00 onset of Medical cold sore. Branch valACYclovi Yes [id number] 2 g twice [facility] r (VALTREX) 6-23 daily for ity of 1 gram 00:00: 1 day with [place] tablet 00 onset of Medical cold sore. Branch valACYclovi Yes [id number] 2 g twice [facility] r (VALTREX) 6-23 daily for ity of 1 gram 00:00: 1 day with [place] tablet 00 onset of Medical cold sore. Branch valACYclovi Yes [id number] 2 g twice [facility] r (VALTREX) 6-23 daily for ity of 1 gram 00:00: 1 day with [place] tablet 00 onset of Medical cold sore. Branch valACYclovi Yes [id number] 2 g twice [facility] r (VALTREX) 6-23 daily for ity of 1 gram 00:00: 1 day with [place] tablet 00 onset of Medical cold sore. Branch valACYclovi Yes [id number] 2 g twice [facility] r (VALTREX) 6-23 daily for ity of 1 gram 00:00: 1 day with [place] tablet 00 onset of Medical cold sore. Branch valACYclovi 2021- No [id number] 2 g twice [facility] r (VALTREX) 6-23 11-07 daily for it y of 1 gram 00:00: 00:00 1 [place] tablet 00 :00 onset of Medical cold sore. Branch cetirizine 2019-02- No [id number] 10mg Take 1 [facility] (ZYRTEC) 10 -03-07 tablet by it y of mg tablet 00:00: 05:59 mouth [place] 00 :00 daily for Medical 30 days. Branch Pseudoephed 2019-02- No [id number] 1{tbl} Take 1 [facility] rine-Guaife 04-07 tablet by it y of nesin 00:00: 05:59 mouth 2 [place] (MUCINEX D 00 :00 (two) Medical MAXIMUM times Branch STRENGTH) daily for 120-1,200 10 days. mg tablet benzonatate 2019-02- No [id number] 200mg Take 1 [facility] 200 mg 04-07 capsule by ity of capsule 00:00: 05:59 mouth 3 [place] 00 :00 (three) Medical times Branch daily as needed for Cough for up to 10 days. TRINTELLIX 2019-02 Yes 15mg Take 15 mg U nivers 10 mg Tab 1-16 by mouth ity of 00:00: daily. Medical Branch TRINTELLIX 2019-02 Yes 15mg Take 15 mg U nivers 10 mg Tab 1-16 by mouth ity of 00:00: daily. Medical Branch TRINTELLIX 2019-02 Yes 15mg Take 15 mg U nivers 10 mg Tab 1-16 by mouth ity of 00:00: daily. [place] [facility] Branch TRINTELLIX 2019- Yes 15mg Take 15 mg U nivers 10 mg Tab 1-16 by mouth ity of 00:00: daily. [place] [facility] Branch TRINTELLIX 2019- Yes 15mg Take 15 mg U nivers 10 mg Tab 1-16 by mouth ity of 00:00: daily. [place] [facility] Branch TRINTELLIX 2019- Yes 15mg Take 15 mg U nivers 10 mg Tab 1-16 by mouth ity of 00:00: daily. [place] [facility] Branch TRINTELLIX 2019- Yes 15mg Take 15 mg U nivers 10 mg Tab 1-16 by mouth ity of 00:00: daily. [place] [facility] Branch TRINTELLIX 2019-02 Yes 15mg Take 15 mg U nivers 10 mg Tab 1-16 by mouth ity of 00:00: daily. [place] [facility] TRINTELLIX 2019- Yes 15mg Take 15 mg U nivers 10 mg Tab 1-16 by mouth ity of 00:00: daily. [place] [facility] TRINTELLIX 2019- Yes 15mg Take 15 mg U nivers 10 mg Tab 1-16 by mouth ity of 00:00: daily. [place] [facility] TRINTELLIX 2019- Yes 15mg Take 15 mg U nivers 10 mg Tab 1-16 by mouth ity of 00:00: daily. [place] [facility] TRINTELLIX 2019-02 Yes 15mg Take 15 mg U nivers 10 mg Tab 1-16 by mouth ity of 00:00: daily. [place] [facility] TRINTELLIX 2019- Yes 15mg Take 15 mg U nivers 10 mg Tab 1-16 by mouth ity of 00:00: daily. [place] [facility] TRINTELLIX 2019- Yes 15mg Take 15 mg U nivers 10 mg Tab 1-16 by mouth ity of 00:00: daily. [place] [facility] Branch TRINTELLIX 2019- Yes 15mg Take 15 mg U nivers 10 mg Tab 1-16 by mouth ity of 00:00: daily. [place] [facility] TRINTELLIX 2019- Yes 15mg Take 15 mg U nivers 10 mg Tab 1-16 by mouth ity of 00:00: daily. [place] [facility] Branch TRINTELLIX 2019-02 Yes 15mg Take 15 mg U nivers 10 mg Tab 1-16 by mouth ity of 00:00: daily. Medical Branch TRINTELLIX 2019-02 Yes 15mg Take 15 mg U nivers 10 mg Tab 1-16 by mouth ity of 00:00: daily. [place] [facility] Branch TRINTELLIX 2019-02 Yes 15mg Take 15 mg U nivers 10 mg Tab 1-16 by mouth ity of 00:00: daily. Medical Branch TRINTELLIX 2019-02 Yes 15mg Take 15 mg U nivers 10 mg Tab 1-16 by mouth ity of 00:00: daily. Medical Branch TRINTELLIX 2019-02 Yes 15mg Take 15 mg U nivers 10 mg Tab 1-16 by mouth ity of 00:00: daily. Medical Branch TRINTELLIX 2019-02 Yes 15mg Take 15 mg U nivers 10 mg Tab 1-16 by mouth ity of 00:00: daily. [place] [facility] TRINTELLIX 2019-02 Yes 15mg Take 15 mg U nivers 10 mg Tab 1-16 by mouth ity of 00:00: daily. Medical Branch TRINTELLIX 2019-02 Yes 15mg Take 15 mg U nivers 10 mg Tab 1-16 by mouth ity of 00:00: daily. [place] [facility] Branch TRINTELLIX 2019-02 Yes 15mg Take 15 mg U nivers 10 mg Tab 1-16 by mouth ity of 00:00: daily. [place] [facility] Branch TRINTELLIX 2019-02 Yes 15mg Take 15 mg U nivers 10 mg Tab 1-16 by mouth ity of 00:00: daily. Medical Branch TRINTELLIX 2019-02 Yes 15mg Take 15 mg U nivers 10 mg Tab 1-16 by mouth ity of 00:00: daily. [place] [facility] Branch TRINTELLIX 2019-02 Yes 15mg Take 15 mg U nivers 10 mg Tab 1-16 by mouth ity of 00:00: daily. [place] [facility] Branch TRINTELLIX 2019-02- No 15mg Take 15 mg [facility] 10 mg Tab 1-16 04-24 by mouth ity o f 00:00: 00:00 daily. [place] 00 Medical Branch TRINTELLIX 2020-1 2023- No 15mg Take 15 mg [facility] 10 mg Tab 03-12 by mouth ity o f 00:00: 00:00 daily. [place] 00 :00 [facility] TRINTELLIX 2019-02- No 15mg Take 15 mg [facility] 10 mg Tab 03-12 by mouth ity o f 00:00: 00:00 daily. [place] 00 :00 [facility] trazodone 2019-02- No Univers HCl 03-12 ity of (TRAZODONE 00:00: 00:00 [place] ORAL) 00 :00 [facility] clonazePAM 2019-02 Yes [facility] 0.5 mg 0-29 ity of tablet 00:00: [place] [facility] clonazePAM 2019-02 Yes Univers 0.5 mg 0-29 ity of tablet 00:00: [address] clonazePAM 2019-02 Yes Univers 0.5 mg 0-29 ity of tablet 00:00: [address] clonazePAM 2019-02 Yes Univers 0.5 mg 0-29 ity of tablet 00:00: [address] clonazePAM 2019-02 Yes [facility] 0.5 mg 0-29 ity of tablet 00:00: [address] clonazePAM 2019-02 Yes Univers 0.5 mg 0-29 ity of tablet 00:00: [address] clonazePAM 2019-02 Yes [facility] 0.5 mg 0-29 ity of tablet 00:00: [address] clonazePAM 2019-02 Yes Univers 0.5 mg 0-29 ity of tablet 00:00: [address] clonazePAM 2019-02 Yes [facility] 0.5 mg 0-29 ity of tablet 00:00: [place] [facility] clonazePAM 2019-02 Yes Univers 0.5 mg 0-29 ity of tablet 00:00: [address] clonazePAM 2019-02 Yes [facility] 0.5 mg 0-29 ity of tablet 00:00: [address] clonazePAM 2019-02 Yes [facility] 0.5 mg 0-29 ity of tablet 00:00: [address] clonazePAM 2019-02 Yes Univers 0.5 mg 0-29 ity of tablet 00:00: [address] clonazePAM 2019-02 Yes Univers 0.5 mg 0-29 ity of tablet 00:00: [address] clonazePAM 2019-02 Yes Univers 0.5 mg 0-29 ity of tablet 00:00: [place] 00 Medical Branch clonazePAM 2019-02 Yes [facility] 0.5 mg 0-29 ity of tablet 00:00: [place] [facility] clonazePAM 2019- Yes [facility] 0.5 mg 0-29 ity of tablet 00:00: [place] [facility] clonazePAM 2019-02 Yes [facility] 0.5 mg 0-29 ity of tablet 00:00: [place] 00 Medical Branch clonazePAM 2019-02 Yes [facility] 0.5 mg 0-29 ity of tablet 00:00: [place] [facility] clonazePAM 2019- Yes Univers 0.5 mg 0-29 ity of tablet 00:00: [place] 00 Medical Branch clonazePAM 2019-02 Yes [facility] 0.5 mg 0-29 ity of tablet 00:00: [place] 00 Medical Branch clonazePAM 2019-2022- No Univer s 0.5 mg 0-29 23 ity of tablet 00:00: 00:00 [place] 00 :00 Medical Branch clonazePAM 2019-2022- No Univer s 0.5 mg 0-29 03-19 ity of tablet 00:00: 00:00 [place] 00 :00 Medical Branch clonazePAM 2019-2022- No Univer s 0.5 mg 0-29 03-19 ity of tablet 00:00: 00:00 [place] 00 :00 Medical Branch traZODone 2020-0 Yes 100mg Take 100 Uni vers 50 mg 3-11 mg by ity of tablet 00:00: mouth at [place] [address] bedtime. Medical Branch traZODone 2020-0 Yes 100mg Take 100 Uni vers 50 mg 3-11 mg by ity of tablet 00:00: mouth at [place] [address] bedtime. Medical Branch traZODone 2020-0 Yes 100mg Take 100 Uni vers 50 mg 3-11 mg by ity of tablet 00:00: mouth at [place] [address] bedtime. Medical Branch traZODone 2020-0 Yes 100mg Take 100 Uni vers 50 mg 3-11 mg by ity of tablet 00:00: mouth at [place] [address] bedtime. Medical Branch traZODone 2020-0 Yes 100mg Take 100 Uni vers 50 mg 3-11 mg by ity of tablet 00:00: mouth at [place] [address] bedtime. Medical Branch traZODone 2020-0 Yes 100mg Take 100 Uni vers 50 mg 3-11 mg by ity of tablet 00:00: mouth at [place] [address] bedtime. Medical Branch traZODone 2020-0 Yes 100mg Take 100 Uni vers 50 mg 3-11 mg by ity of tablet 00:00: mouth at [place] [address] bedtime. Medical Branch traZODone 2020-0 Yes 100mg Take 100 Uni vers 50 mg 3-11 mg by ity of tablet 00:00: mouth at [place] [address] bedtime. Medical Branch traZODone 2020-0 Yes 100mg Take 100 Uni vers 50 mg 3-11 mg by ity of tablet 00:00: mouth at [place] [address] bedtime. Medical Branch traZODone 2020-0 Yes 100mg Take 100 Uni vers 50 mg 3-11 mg by ity of tablet 00:00: mouth at [place] [address] bedtime. Medical Branch traZODone 2020-0 Yes 100mg Take 100 Uni vers 50 mg 3-11 mg by ity of tablet 00:00: mouth at [place] [address] bedtime. Medical Branch traZODone 2020-0 Yes 100mg Take 100 Uni vers 50 mg 3-11 mg by ity of tablet 00:00: mouth at [place] [address] bedtime. Medical Branch traZODone 2020-0 Yes 100mg Take 100 Uni vers 50 mg 3-11 mg by ity of tablet 00:00: mouth at [place] [address] bedtime. Medical Branch traZODone 2020-0 Yes 100mg Take 100 Uni vers 50 mg 3-11 mg by ity of tablet 00:00: mouth at [place] [address] bedtime. Medical Branch traZODone 2020-0 Yes 100mg Take 100 Uni vers 50 mg 3-11 mg by ity of tablet 00:00: mouth at [place] [address] bedtime. Medical Branch traZODone 2020-0 Yes 100mg Take 100 Uni vers 50 mg 3-11 mg by ity of tablet 00:00: mouth at [place] [address] bedtime. [facility] traZODone 2020-0 Yes 100mg Take 100 [facility] vers 50 mg 3-11 mg by ity of tablet 00:00: mouth at [place] [address] bedtime. [facility] traZODone 2020-0 Yes 100mg Take 100 [facility] vers 50 mg 3-11 mg by ity of tablet 00:00: mouth at [place] [address] bedtime. [facility] traZODone 2020-0 Yes 100mg Take 100 [facility] vers 50 mg 3-11 mg by ity of tablet 00:00: mouth at [place] 00 bedtime. [facility] traZODone 2020-0 Yes 100mg Take 100 [facility] vers 50 mg 3-11 mg by ity of tablet 00:00: mouth at [place] 00 bedtime. [facility] traZODone 2020-0 Yes 100mg Take 100 [facility] vers 50 mg 3-11 mg by ity of tablet 00:00: mouth at [place] 00 bedtime. [facility] traZODone 2019-0 2022- No 100mg Take 100 [facility] [place] 50 mg 3-11 01-23 mg by ity of tablet 00:00: 00:00 mouth at [place] 00 :00 bedtime. [facility] traZODone 2019-0 2022- No 100mg Take 100 [facility] [place] 50 mg 3-11 01-23 mg by ity of tablet 00:00: 00:00 mouth at [place] 00 :00 bedtime. [facility] traZODone 2019-0 2022- No 100mg Take 100 [facility] [place] 50 mg 3-11 01-23 mg by ity of tablet 00:00: 00:00 mouth at [place] 00 :00 bedtime. [facility] traZODone 0 2022- No 100mg Take 100 [facility] [place] 50 mg 3-11 01-23 mg by ity of tablet 00:00: 00:00 mouth at [place] 00 :00 bedtime. [facility] LATUDA 40 0 2020- No TK 1 T PO Un [place] mg tablet 2-25 02-24 D ity of 00:00: 00:00 [place] 00 :00 [facility] LATUDA 40 2019-0 2020- No TK 1 T PO Un [place] mg tablet 2-25 02-24 D ity of 00:00: 00:00 [place] 00 :00 [facility] hydrOXYzine 2018-02- No TK 1 T PO [facility] 25 mg 2-18 02-24 D PRA ity of tablet 00:00: 00:00 [place] 00 :00 [facility] hydrOXYzine 2018-2020- No TK 1 T PO [facility] 25 mg 2-18 02-24 D PRA ity of tablet 00:00: 00:00 [place] 00 :00 [facility] Immunizations Ordered Filled Date Status Comments Source Immunization Name Immunization Name Influenza Virus 2022-03-19 Completed [facility], 00:00:00 [facility] dical Preserv and ABX Branch Free 6 MO-64 YRS Influenza Virus 2022-03-19 Completed [facility], 00:00:00 [place] [facility] dical Preserv and ABX Branch Free 6 MO-64 YRS Influenza Virus 2022-03-19 Completed [facility], 00:00:00 [place] [facility] Preserv and ABX Branch Free 6 MO-64 YRS Influenza Virus 2022-03-19 Completed [facility], 00:00:00 [place] [facility] dical Preserv and ABX Branch Free 6 MO-64 YRS Influenza Virus 2022-03-19 Completed [facility], 00:00:00 [place] [facility] Preserv and ABX Branch Free 6 MO-64 YRS Influenza Virus 2022-03-19 Completed [facility], 00:00:00 [place] [facility] dical Preserv and ABX Branch Free 6 MO-64 YRS Influenza Virus 2022-03-19 Completed [facility], 00:00:00 [place] [facility] dical Preserv and ABX Branch Free 6 MO-64 YRS Influenza Virus 2022-03-19 Completed [facility], 00:00:00 [place] [facility] dical Preserv and ABX Branch Free 6 MO-64 YRS Influenza Virus 2022-03-19 Completed [facility], 00:00:00 [place] [facility] d[facility] Preserv and ABX Branch Free 6 MO-64 YRS Influenza Virus 2022-03-19 Completed [facility], 00:00:00 [place] [facility] dical Preserv and ABX Branch Free 6 MO-64 YRS Influenza Virus 2022-03-19 Completed [facility], 00:00:00 [place] [facility] dical Preserv and ABX Branch Free 6 MO-64 YRS Influenza Virus 2022-03-19 Completed [facility], 00:00:00 [place] [facility] dical Preserv and ABX Branch Free 6 MO-64 YRS Influenza Virus 2022-03-19 Completed [facility], 00:00:00 [place] [facility] dical Preserv and ABX Branch Free 6 MO-64 YRS Influenza Virus 2022-03-19 Completed [facility], 00:00:00 [place] [facility] dical Preserv and ABX Branch Free 6 MO-64 YRS (FLUCELVAX) Influenza Virus 2022-03-19 Completed [facility], 00:00:00 [place] [facility] dical Preserv and ABX Branch Free 6 MO-64 YRS (FLUCELVAX) Influenza Virus 2022-03-19 Completed [facility], 00:00:00 [place] [facility] dical Preserv and ABX Branch Free 6 MO-64 YRS (FLUCELVAX) Influenza Virus 2022-03-19 Completed [facility], 00:00:00 [place] [facility] dical Preserv and ABX Branch Free 6 MO-64 YRS Influenza Virus 2022-03-19 Completed [facility], 00:00:00 [place] [facility] dical Preserv and ABX Branch Free 6 MO-64 YRS Influenza Virus 2022-03-19 Completed [facility] IM, 00:00:00 [place] [facility] dical Preserv and ABX Branch Free 6 MO-64 YRS Influenza Virus 2022-03-19 Completed [facility]ine [facility] IM, 00:00:00 [place] [facility] dical Preserv and ABX Branch Free 6 MO-64 YRS Influenza Virus 2022-03-19 Completed [facility] IM, 00:00:00 [place] [facility] dical Preserv and ABX Branch Free 6 MO-64 YRS Influenza Virus 2022-03-19 Completed [facility] Vaccine [facility] IM, 00:00:00 [place] [facility] dical Preserv and ABX Branch Free 6 MO-64 YRS Influenza Virus 2022-03-19 Completed [facility], 00:00:00 [place] [facility] dical Preserv and ABX Branch Free 6 MO-64 YRS Influenza Virus 2022-03-19 Completed [facility]ine [facility] IM, 00:00:00 [place] [facility] dical Preserv and ABX Branch Free 6 MO-64 YRS Influenza Virus 2022-03-19 Completed [facility], 00:00:00 [place] [facility] dical Preserv and ABX Branch Free 6 MO-64 YRS Pfizer COVID-19 Pfizer COVID-19 2020-07-11 Completed Vaccine Vaccine 00:00:00 SARS-COV-2 COVID-19 2020-07-11 Completed Unive rsity of PFIZER VACCINE 00:00:00 [place] [facility] SARS-COV-2 COVID-19 2020-07-11 Completed Unive rsity of PFIZER VACCINE 00:00:00 [place] [facility] SARS-COV-2 COVID-19 2020-07-11 Completed Unive rsity of PFIZER VACCINE 00:00:00 [place] [facility] SARS-COV-2 COVID-19 2020-07-11 Completed Unive rsity of PFIZER VACCINE 00:00:00 [place] [facility] SARS-COV-2 COVID-19 2020-07-11 Completed Unive rsity of PFIZER VACCINE 00:00:00 [place] [facility] SARS-COV-2 COVID-19 2020-07-11 Completed Unive rsity of PFIZER VACCINE 00:00:00 [place] [facility] SARS-COV-2 COVID-19 2020-07-11 Completed Unive rsity of PFIZER VACCINE 00:00:00 [place] [facility] SARS-COV-2 COVID-19 2020-07-11 Completed Unive rsity of PFIZER VACCINE 00:00:00 [place] [facility] SARS-COV-2 COVID-19 2020-07-11 Completed Unive rsity of PFIZER VACCINE 00:00:00 [place] [facility] SARS-COV-2 COVID-19 2020-07-11 Completed Unive rsity of PFIZER VACCINE 00:00:00 [place] [facility] SARS-COV-2 COVID-19 2020-07-11 Completed Unive rsity of PFIZER VACCINE 00:00:00 [facility] SARS-COV-2 COVID-19 2020-07-11 Completed Unive rsity of PFIZER VACCINE 00:00:00 [facility] SARS-COV-2 COVID-19 2020-07-11 Completed Unive rsity of PFIZER VACCINE 00:00:00 [facility] SARS-COV-2 COVID-19 2020-07-11 Completed Unive rsity of PFIZER VACCINE 00:00:00 [facility] SARS-COV-2 COVID-19 2020-07-11 Completed Unive rsity of PFIZER VACCINE 00:00:00 [place] [facility] SARS-COV-2 COVID-19 2020-07-11 Completed Unive rsity of PFIZER VACCINE 00:00:00 [place] [facility] SARS-COV-2 COVID-19 2020-07-11 Completed Unive rsity of PFIZER VACCINE 00:00:00 [place] [facility] SARS-COV-2 COVID-19 2020-07-11 Completed Unive rsity of PFIZER VACCINE 00:00:00 [place] [facility] SARS-COV-2 COVID-19 2020-07-11 Completed Unive rsity of PFIZER VACCINE 00:00:00 [place] [facility] SARS-COV-2 COVID-19 2020-07-11 Completed Unive rsity of PFIZER VACCINE 00:00:00 [place] [facility] SARS-COV-2 COVID-19 2020-07-11 Completed Unive rsity of PFIZER VACCINE 00:00:00 [place] [facility] SARS-COV-2 COVID-19 2020-07-11 Completed Unive rsity of PFIZER VACCINE 00:00:00 [place] [facility] SARS-COV-2 COVID-19 2020-07-11 Completed Unive rsity of PFIZER VACCINE 00:00:00 [place] [facility] SARS-COV-2 COVID-19 2020-07-11 Completed Unive rsity of PFIZER VACCINE 00:00:00 [place] [facility] SARS-COV-2 COVID-19 2020-07-11 Completed Unive rsity of PFIZER VACCINE 00:00:00 [place] [facility] SARS-COV-2 COVID-19 2020-07-11 Completed Unive rsity of PFIZER VACCINE 00:00:00 [place] [facility] SARS-COV-2 COVID-19 2020-07-11 Completed Unive rsity of PFIZER VACCINE 00:00:00 [place] [facility] SARS-COV-2 COVID-19 2020-07-11 Completed Unive rsity of PFIZER VACCINE 00:00:00 [place] [facility] SARS-COV-2 COVID-19 2020-07-11 Completed Unive rsity of PFIZER VACCINE 00:00:00 [place] [facility] SARS-COV-2 COVID-19 2020-07-11 Completed Unive rsity of PFIZER VACCINE 00:00:00 [place] [facility] SARS-COV-2 COVID-19 2020-07-11 Completed Unive rsity of PFIZER VACCINE 00:00:00 [place] [facility] SARS-COV-2 COVID-19 2020-07-11 Completed Unive rsity of PFIZER VACCINE 00:00:00 [facility] SARS-COV-2 COVID-19 2020-07-11 Completed Unive rsity of PFIZER VACCINE 00:00:00 [facility] SARS-COV-2 COVID-19 2020-07-11 Completed Unive rsity of PFIZER VACCINE 00:00:00 [facility] SARS-COV-2 COVID-19 2020-07-11 Completed Unive rsity of PFIZER VACCINE 00:00:00 [facility] SARS-COV-2 COVID-19 2020-07-11 Completed Unive rsity of PFIZER VACCINE 00:00:00 [facility] SARS-COV-2 COVID-19 2020-07-11 Completed Unive rsity of PFIZER VACCINE 00:00:00 [facility] SARS-COV-2 COVID-19 2020-07-11 Completed Unive rsity of PFIZER VACCINE 00:00:00 [facility] SARS-COV-2 COVID-19 2020-07-11 Completed Unive rsity of PFIZER VACCINE 00:00:00 [facility] SARS-COV-2 COVID-19 2020-07-11 Completed Unive rsity of PFIZER VACCINE 00:00:00 [facility] SARS-COV-2 COVID-19 2020-07-11 Completed Unive rsity of PFIZER VACCINE 00:00:00 [facility] SARS-COV-2 COVID-19 2020-07-11 Completed Unive rsity of PFIZER VACCINE 00:00:00 [facility] SARS-COV-2 COVID-19 2020-07-11 Completed Unive rsity of PFIZER VACCINE 00:00:00 [facility] SARS-COV-2 COVID-19 2020-07-11 Completed Unive rsity of PFIZER VACCINE 00:00:00 [facility] SARS-COV-2 COVID-19 2020-07-11 Completed Unive rsity of PFIZER VACCINE 00:00:00 [facility] SARS-COV-2 COVID-19 2020-07-11 Completed Unive rsity of PFIZER VACCINE 00:00:00 [facility] Pfizer COVID-19 Pfizer COVID-19 2020-06-20 Completed Vaccine Vaccine 00:00:00 SARS-COV-2 COVID-19 2020-06-20 Completed Unive rsity of PFIZER VACCINE 00:00:00 [facility] SARS-COV-2 COVID-19 2020-06-20 Completed Unive rsity of PFIZER VACCINE 00:00:00 [facility] SARS-COV-2 COVID-19 2020-06-20 Completed Unive rsity of PFIZER VACCINE 00:00:00 [facility] SARS-COV-2 COVID-19 2020-06-20 Completed Unive rsity of PFIZER VACCINE 00:00:00 [facility] SARS-COV-2 COVID-19 2020-06-20 Completed Unive rsity of PFIZER VACCINE 00:00:00 [facility] SARS-COV-2 COVID-19 2020-06-20 Completed Unive rsity of PFIZER VACCINE 00:00:00 [facility] SARS-COV-2 COVID-19 2020-06-20 Completed Unive rsity of PFIZER VACCINE 00:00:00 [facility] SARS-COV-2 COVID-19 2020-06-20 Completed Unive rsity of PFIZER VACCINE 00:00:00 [facility] SARS-COV-2 COVID-19 2020-06-20 Completed Unive rsity of PFIZER VACCINE 00:00:00 [facility] SARS-COV-2 COVID-19 2020-06-20 Completed Unive rsity of PFIZER VACCINE 00:00:00 [facility] SARS-COV-2 COVID-19 2020-06-20 Completed Unive rsity of PFIZER VACCINE 00:00:00 [facility] SARS-COV-2 COVID-19 2020-06-20 Completed Unive rsity of PFIZER VACCINE 00:00:00 [facility] SARS-COV-2 COVID-19 2020-06-20 Completed Unive rsity of PFIZER VACCINE 00:00:00 [facility] SARS-COV-2 COVID-19 2020-06-20 Completed Unive rsity of PFIZER VACCINE 00:00:00 [facility] SARS-COV-2 COVID-19 2020-06-20 Completed Unive rsity of PFIZER VACCINE 00:00:00 [facility] SARS-COV-2 COVID-19 2020-06-20 Completed Unive rsity of PFIZER VACCINE 00:00:00 [facility] SARS-COV-2 COVID-19 2020-06-20 Completed Unive rsity of PFIZER VACCINE 00:00:00 [facility] SARS-COV-2 COVID-19 2020-06-20 Completed Unive rsity of PFIZER VACCINE 00:00:00 [facility] SARS-COV-2 COVID-19 2020-06-20 Completed Unive rsity of PFIZER VACCINE 00:00:00 [facility] SARS-COV-2 COVID-19 2020-06-20 Completed Unive rsity of PFIZER VACCINE 00:00:00 [facility] SARS-COV-2 COVID-19 2020-06-20 Completed Unive rsity of PFIZER VACCINE 00:00:00 [facility] SARS-COV-2 COVID-19 2020-06-20 Completed Unive rsity of PFIZER VACCINE 00:00:00 [facility] SARS-COV-2 COVID-19 2020-06-20 Completed Unive rsity of PFIZER VACCINE 00:00:00 [facility] SARS-COV-2 COVID-19 2020-06-20 Completed Unive rsity of PFIZER VACCINE 00:00:00 [facility] SARS-COV-2 COVID-19 2020-06-20 Completed Unive rsity of PFIZER VACCINE 00:00:00 [facility] SARS-COV-2 COVID-19 2020-06-20 Completed Unive rsity of PFIZER VACCINE 00:00:00 [facility] SARS-COV-2 COVID-19 2020-06-20 Completed Unive rsity of PFIZER VACCINE 00:00:00 [facility] SARS-COV-2 COVID-19 2020-06-20 Completed Unive rsity of PFIZER VACCINE 00:00:00 [facility] SARS-COV-2 COVID-19 2020-06-20 Completed Unive rsity of PFIZER VACCINE 00:00:00 [facility] SARS-COV-2 COVID-19 2020-06-20 Completed Unive rsity of PFIZER VACCINE 00:00:00 [facility] SARS-COV-2 COVID-19 2020-06-20 Completed Unive rsity of PFIZER VACCINE 00:00:00 [facility] SARS-COV-2 COVID-19 2020-06-20 Completed Unive rsity of PFIZER VACCINE 00:00:00 [facility] SARS-COV-2 COVID-19 2020-06-20 Completed Unive rsity of PFIZER VACCINE 00:00:00 [facility] SARS-COV-2 COVID-19 2020-06-20 Completed Unive rsity of PFIZER VACCINE 00:00:00 [facility] SARS-COV-2 COVID-19 2020-06-20 Completed Un[facility] rsity of PFIZER VACCINE 00:00:00 [facility] SARS-COV-2 COVID-19 2020-06-20 Completed Unive rsity of PFIZER VACCINE 00:00:00 [facility] SARS-COV-2 COVID-19 2020-06-20 Completed Unive rsity of PFIZER VACCINE 00:00:00 [facility] SARS-COV-2 COVID-19 2020-06-20 Completed Unive rsity of PFIZER VACCINE 00:00:00 [facility] SARS-COV-2 COVID-19 2020-06-20 Completed Unive rsity of PFIZER VACCINE 00:00:00 [facility] SARS-COV-2 COVID-19 2020-06-20 Completed Unive rsity of PFIZER VACCINE 00:00:00 [facility] SARS-COV-2 COVID-19 2020-06-20 Completed Unive rsity of PFIZER VACCINE 00:00:00 [facility] SARS-COV-2 COVID-19 2020-06-20 Completed Unive rsity of PFIZER VACCINE 00:00:00 [facility] SARS-COV-2 COVID-19 2020-06-20 Completed Unive rsity of PFIZER VACCINE 00:00:00 [facility] SARS-COV-2 COVID-19 2020-06-20 Completed Unive rsity of PFIZER VACCINE 00:00:00 [facility] SARS-COV-2 COVID-19 2020-06-20 Completed Unive rsity of PFIZER VACCINE 00:00:00 [facility] SARS-COV-2 COVID-19 2020-06-20 Completed Unive rsity of PFIZER VACCINE 00:00:00 [facility] Influenza Virus 2020-04-20 Completed [facility] .5 mL 00:00:00 [place] [facility] 6+ MO Branch Influenza Virus 2020-04-20 Completed [facility]ine [facility] .5 mL 00:00:00 [place] [facility] 6+ MO Branch Influenza Virus 2020-04-20 Completed [facility] Vaccine [facility] .5 mL 00:00:00 [place] [facility] IM 6+ MO Branch Influenza Virus 2020-04-20 Completed [facility]ine [facility] .5 mL 00:00:00 [place] [facility] 6+ MO Branch Influenza Virus 2020-04-20 Completed [facility] Vaccine [facility] .5 mL 00:00:00 [place] [facility] 6+ MO Branch Influenza Virus 2020-04-20 Completed [facility] Vaccine [facility] .5 mL 00:00:00 [place] [facility] 6+ MO Branch Influenza Virus 2020-04-20 Completed [facility] Vaccine [facility] .5 mL 00:00:00 [place] [facility] 6+ MO Branch Influenza Virus 2020-04-20 Completed [facility] Vaccine [facility] .5 mL 00:00:00 [place] [facility] IM 6+ MO Branch Influenza Virus 2020-04-20 Completed [facility] Vaccine [facility] .5 mL 00:00:00 [place] [facility] 6+ MO Branch Influenza Virus 2020-04-20 Completed [facility] Vaccine [facility] .5 mL 00:00:00 [place] [facility] IM 6+ MO Branch Influenza Virus 2020-04-20 Completed [facility] Vaccine [facility] .5 mL 00:00:00 [place] [facility] IM 6+ MO Branch Influenza Virus 2020-04-20 Completed [facility]ine [facility] .5 mL 00:00:00 [place] [facility] IM 6+ MO Branch Influenza Virus 2020-04-20 Completed [facility] Vaccine [facility] .5 mL 00:00:00 [place] [facility] IM 6+ MO Branch Influenza Virus 2020-04-20 Completed [facility] .5 mL 00:00:00 [place] [facility] IM 6+ MO Branch (FLUZONE/FLULAVAL/F LUARIX) Influenza Virus 2020-04-20 Completed [facility] .5 mL 00:00:00 [place] [facility] IM 6+ MO Branch (FLUZONE/FLULAVAL/F LUARIX) Influenza Virus 2020-04-20 Completed [facility] Vaccine [facility] .5 mL 00:00:00 [place] [facility] IM 6+ MO Branch (FLUZONE/FLULAVAL/F LUARIX) Influenza Virus 2020-04-20 Completed [facility] Vaccine [facility] .5 mL 00:00:00 [place] [facility] IM 6+ MO Branch Influenza Virus 2020-04-20 Completed [facility] Vaccine [facility] .5 mL 00:00:00 [place] [facility] IM 6+ MO Branch Influenza Virus 2020-04-20 Completed [facility] Vaccine [facility] .5 mL 00:00:00 [place] [facility] IM 6+ MO Branch Influenza Virus 2020-04-20 Completed [facility] Vaccine [facility] .5 mL 00:00:00 [place] [facility] IM 6+ MO Branch Influenza Virus 2020-04-20 Completed [facility] Vaccine [facility] .5 mL 00:00:00 [place] [facility] IM 6+ MO Branch Influenza Virus 2020-04-20 Completed [facility] Vaccine [facility] .5 mL 00:00:00 [place] [facility] IM 6+ MO Branch Influenza Virus 2020-04-20 Completed [facility] Vaccine [facility] .5 mL 00:00:00 [place] [facility] 6+ MO Branch Influenza Virus 2020-04-20 Completed [facility] Vaccine [facility] .5 mL 00:00:00 [place] [facility] 6+ MO Branch Influenza Virus 2020-04-20 Completed [facility] Vaccine [facility] .5 mL 00:00:00 [place] [facility] IM 6+ MO Branch Influenza Virus 2020-04-20 Completed [facility] Vaccine [facility] .5 mL 00:00:00 [place] [facility] 6+ MO Branch Influenza Virus 2020-04-20 Completed [facility] Vaccine [facility] .5 mL 00:00:00 [place] [facility] 6+ MO Branch Influenza Virus 2020-04-20 Completed [facility]ine [facility] .5 mL 00:00:00 [place] [facility] 6+ MO Branch Influenza Virus 2020-04-20 Completed [facility] Vaccine [facility] .5 mL 00:00:00 [place] [facility] IM 6+ MO Branch Influenza Virus 2020-04-20 Completed [facility] Vaccine [facility] .5 mL 00:00:00 [place] [facility] 6+ MO Branch Influenza Virus 2020-04-20 Completed [facility] Vaccine [facility] .5 mL 00:00:00 [place] [facility] IM 6+ MO Branch Influenza Virus 2020-04-20 Completed [facility] Vaccine [facility] .5 mL 00:00:00 [place] [facility] 6+ MO Branch Influenza Virus 2020-04-20 Completed [facility]ine [facility] .5 mL 00:00:00 [place] [facility] 6+ MO Branch Influenza Virus 2020-04-20 Completed [facility] Vaccine [facility] .5 mL 00:00:00 [place] [facility] 6+ MO Branch Influenza Virus 2020-04-20 Completed [facility] Vaccine [facility] .5 mL 00:00:00 [place] [facility] 6+ MO Branch Influenza Virus 2020-04-20 Completed [facility] Vaccine [facility] .5 mL 00:00:00 [place] [facility] 6+ MO Branch Influenza Virus 2020-04-20 Completed [facility]ine [facility] .5 mL 00:00:00 [place] [facility] 6+ MO Branch Influenza Virus 2020-04-20 Completed [facility] Vaccine [facility] .5 mL 00:00:00 [place] [facility] 6+ MO Branch Influenza Virus 2020-04-20 Completed [facility] Vaccine [facility] .5 mL 00:00:00 [place] [facility] 6+ MO Branch Influenza Virus 2020-04-20 Completed [facility] Vaccine [facility] .5 mL 00:00:00 [place] [facility] 6+ MO Branch Influenza Virus 2020-04-20 Completed [facility] Vaccine [facility] .5 mL 00:00:00 [place] [facility] 6+ MO Branch Influenza Virus 2020-04-20 Completed [facility] Vaccine [facility] .5 mL 00:00:00 [place] [facility] 6+ MO Branch Influenza Virus 2020-04-20 Completed [facility] Vaccine [facility] .5 mL 00:00:00 [place] [facility] 6+ MO Branch Influenza Virus 2020-04-20 Completed [facility] Vaccine [facility] .5 mL 00:00:00 [place] [facility] 6+ MO Branch Influenza Virus 2020-04-20 Completed [facility] Vaccine [facility] .5 mL 00:00:00 [place] [facility] 6+ MO Branch Influenza Virus 2020-04-20 Completed [facility]ine [facility] .5 mL 00:00:00 [place] [facility] 6+ MO Branch Influenza Virus 2019-05-07 Completed [facility]ine [facility] .5 mL 00:00:00 [place] [facility] 6+ MO Branch Influenza Virus 2019-05-07 Completed [facility] Vaccine [facility] .5 mL 00:00:00 [place] [facility] 6+ MO Branch Influenza Virus 2019-05-07 Completed [facility] Vaccine [facility] .5 mL 00:00:00 [place] [facility] 6+ MO Branch Influenza Virus 2019-05-07 Completed [facility]ine [facility] .5 mL 00:00:00 [place] [facility] 6+ MO Branch Influenza Virus 2019-05-07 Completed [facility]ine [facility] .5 mL 00:00:00 [place] [facility] 6+ MO Branch Influenza Virus 2019-05-07 Completed [facility]ine [facility] .5 mL 00:00:00 [place] [facility] 6+ MO Branch Influenza Virus 2019-05-07 Completed [facility] Vaccine [facility] .5 mL 00:00:00 [place] [facility] 6+ MO Branch Influenza Virus 2019-05-07 Completed [facility]ine [facility] .5 mL 00:00:00 [place] [facility] 6+ MO Branch Influenza Virus 2019-05-07 Completed [facility]ine [facility] .5 mL 00:00:00 [place] [facility] 6+ MO Branch Influenza Virus 2019-05-07 Completed [facility]ine [facility] .5 mL 00:00:00 [place] [facility] 6+ MO Branch Influenza Virus 2019-05-07 Completed [facility]ine [facility] .5 mL 00:00:00 [place] [facility] 6+ MO Branch Influenza Virus 2019-05-07 Completed [facility]ine [facility] .5 mL 00:00:00 [place] [facility] 6+ MO Branch Influenza Virus 2019-05-07 Completed [facility]ine [facility] .5 mL 00:00:00 [place] [facility] 6+ MO Branch Influenza Virus 2019-05-07 Completed [facility] .5 mL 00:00:00 [place] [facility] 6+ MO Branch (FLUZONE/FLULAVAL/F LUARIX) Influenza Virus 2019-05-07 Completed [facility] 00:00:00 [facility] 6+ MO [facility] (FLUZONE/FLULAVAL/F LUARIX) Influenza Virus 2019-05-07 Completed [facility] .5 mL 00:00:00 [facility] (FLUZONE/FLULAVAL/F LUARIX) Influenza Virus 2019-05-07 Completed [facility] .5 mL 00:00:00 [facility] Influenza Virus 2019-05-07 Completed [facility] .5 mL 00:00:00 [facility] Influenza Virus 2019-05-07 Completed [facility] .5 mL 00:00:00 [facility] Influenza Virus 2019-05-07 Completed [facility] .5 mL 00:00:00 [facility] Influenza Virus 2019-05-07 Completed [facility] .5 mL 00:00:00 [facility] Influenza Virus 2019-05-07 Completed [facility] .5 mL 00:00:00 [facility] Influenza Virus 2019-05-07 Completed [facility] .5 mL 00:00:00 [facility] Influenza Virus 2019-05-07 Completed [facility] .5 mL 00:00:00 [facility] Influenza Virus 2019-05-07 Completed [facility] .5 mL 00:00:00 [facility] Influenza Virus 2019-05-07 Completed [facility] .5 mL 00:00:00 [facility] Influenza Virus 2019-05-07 Completed [facility] .5 mL 00:00:00 [facility] Influenza Virus 2019-05-07 Completed [facility] .5 mL 00:00:00 [facility] Influenza Virus 2019-05-07 Completed [facility] .5 mL 00:00:00 [facility] Influenza Virus 2019-05-07 Completed [facility] .5 mL 00:00:00 [facility] Influenza Virus 2019-05-07 Completed [facility] .5 mL 00:00:00 [facility] Influenza Virus 2019-05-07 Completed [facility] .5 mL 00:00:00 [facility] Influenza Virus 2019-05-07 Completed [facility] .5 mL 00:00:00 [facility] Influenza Virus 2019-05-07 Completed [facility] .5 mL 00:00:00 [facility] Influenza Virus 2019-05-07 Completed [facility] .5 mL 00:00:00 [facility] Influenza Virus 2019-05-07 Completed [facility] .5 mL 00:00:00 [facility] Influenza Virus 2019-05-07 Completed [facility] .5 mL 00:00:00 [facility] Influenza Virus 2019-05-07 Completed [facility] .5 mL 00:00:00 [facility] Influenza Virus 2019-05-07 Completed [facility] .5 mL 00:00:00 [facility] Influenza Virus 2019-05-07 Completed [facility] .5 mL 00:00:00 [facility] Influenza Virus 2019-05-07 Completed [facility] .5 mL 00:00:00 [facility] Influenza Virus 2019-05-07 Completed [facility] .5 mL 00:00:00 [facility] Influenza Virus 2019-05-07 Completed [facility] .5 mL 00:00:00 [facility] Influenza Virus 2019-05-07 Completed [facility] .5 mL 00:00:00 [facility] Influenza Virus 2019-05-07 Completed [facility] .5 mL 00:00:00 [facility] 6[facility] Influenza Virus 2019-05-07 Completed [facility] .5 mL 00:00:00 [facility] Influenza Virus 2018-04-17 Completed [facility] .5 mL 00:00:00 [facility] 6[facility] Influenza Virus 2018-04-17 Completed [facility] .5 mL 00:00:00 [facility] Influenza Virus 2018-04-17 Completed [facility] .5 mL 00:00:00 [facility] 6[facility] Influenza Virus 2018-04-17 Completed [facility] .5 mL 00:00:00 [facility] 6[facility] Influenza Virus 2018-04-17 Completed [facility] .5 mL 00:00:00 [facility] 6[facility] Influenza Virus 2018-04-17 Completed [facility] .5 mL 00:00:00 [facility] 6[facility] Influenza Virus 2018-04-17 Completed [facility] .5 mL 00:00:00 [facility] Influenza Virus 2018-04-17 Completed [facility] .5 mL 00:00:00 [facility] Influenza Virus 2018-04-17 Completed [facility] .5 mL 00:00:00 [facility] Influenza Virus 2018-04-17 Completed [facility] .5 mL 00:00:00 [facility] 6[facility] Influenza Virus 2018-04-17 Completed [facility] .5 mL 00:00:00 [facility] 6[facility] MO [facility] Influenza Virus 2018-04-17 Completed [facility] .5 mL 00:00:00 [facility] 6[facility] Influenza Virus 2018-04-17 Completed [facility] .5 mL 00:00:00 [facility] 6[facility] MO [facility] Influenza Virus 2018-04-17 Completed [facility] .5 mL 00:00:00 [facility] 6[facility] MO [facility] (FLUZONE/FLULAVAL/F LUARIX) Influenza Virus 2018-04-17 Completed [facility] .5 mL 00:00:00 [facility] 6[facility] MO [facility] (FLUZONE/FLULAVAL/F LUARIX) Influenza Virus 2018-04-17 Completed [facility] .5 mL 00:00:00 [facility] 6+ MO Branch (FLUZONE/FLULAVAL/F LUARIX) Influenza Virus 2018-04-17 Completed [facility] .5 mL 00:00:00 [facility] 6[facility] MO [facility] Influenza Virus 2018-04-17 Completed [facility] .5 mL 00:00:00 [facility] 6[facility] MO [facility] Influenza Virus 2018-04-17 Completed [facility] .5 mL 00:00:00 [facility] 6+ MO [facility] Influenza Virus 2018-04-17 Completed [facility] .5 mL 00:00:00 [facility] 6[facility] MO [facility] Influenza Virus 2018-04-17 Completed [facility] .5 mL 00:00:00 [facility] 6[facility] Influenza Virus 2018-04-17 Completed [facility] .5 mL 00:00:00 [facility] 6[facility] Influenza Virus 2018-04-17 Completed [facility] .5 mL 00:00:00 [facility] 6[facility] MO [facility] Influenza Virus 2018-04-17 Completed [facility] .5 mL 00:00:00 [facility] 6[facility] Influenza Virus 2018-04-17 Completed [facility] .5 mL 00:00:00 [facility] 6[facility] MO [facility] Influenza Virus 2018-04-17 Completed [facility] .5 mL 00:00:00 [facility] 6[facility] MO [facility] Influenza Virus 2018-04-17 Completed [facility] .5 mL 00:00:00 [facility] 6[facility] MO [facility] Influenza Virus 2018-04-17 Completed [facility] .5 mL 00:00:00 [facility] 6[facility] MO [facility] Influenza Virus 2018-04-17 Completed [facility] .5 mL 00:00:00 [facility] 6[facility] Influenza Virus 2018-04-17 Completed [facility] .5 mL 00:00:00 [facility] 6[facility] Influenza Virus 2018-04-17 Completed [facility] .5 mL 00:00:00 [facility] 6[facility] MO [facility] Influenza Virus 2018-04-17 Completed [facility] .5 mL 00:00:00 [facility] 6[facility] MO [facility] Influenza Virus 2018-04-17 Completed [facility] .5 mL 00:00:00 [facility] 6[facility] MO [facility] Influenza Virus 2018-04-17 Completed [facility] .5 mL 00:00:00 [facility] 6[facility] MO [facility] Influenza Virus 2018-04-17 Completed [facility] .5 mL 00:00:00 [facility] 6[facility] MO [facility] Influenza Virus 2018-04-17 Completed [facility] .5 mL 00:00:00 [facility] 6[facility] MO [facility] Influenza Virus 2018-04-17 Completed [facility] .5 mL 00:00:00 [facility] 6[facility] MO [facility] Influenza Virus 2018-04-17 Completed [facility] .5 mL 00:00:00 [facility] 6[facility] Influenza Virus 2018-04-17 Completed [facility] .5 mL 00:00:00 [facility] 6[facility] Influenza Virus 2018-04-17 Completed [facility] .5 mL 00:00:00 [facility] 6[facility] MO [facility] Influenza Virus 2018-04-17 Completed [facility] .5 mL 00:00:00 [facility] 6[facility] MO [facility] Influenza Virus 2018-04-17 Completed [facility] .5 mL 00:00:00 [facility] 6[facility] MO [facility] Influenza Virus 2018-04-17 Completed [facility] .5 mL 00:00:00 [facility] 6[facility] MO [facility] Influenza Virus 2018-04-17 Completed [facility] .5 mL 00:00:00 [facility] 6[facility] Influenza Virus 2018-04-17 Completed [facility] .5 mL 00:00:00 [facility] 6[facility] Influenza Virus 2018-04-17 Completed [facility] .5 mL 00:00:00 [facility] [place] Influenza Virus 2017-04-09 Completed [facility] IM 3+ 00:00:00 [facility] Influenza Virus 2017-04-09 Completed [facility] IM 3+ 00:00:00 [facility] Influenza Virus 2017-04-09 Completed [facility] IM 3+ 00:00:00 [facility] Influenza Virus 2017-04-09 Completed [facility] IM 3+ 00:00:00 [facility] Influenza Virus 2017-04-09 Completed [facility] IM 3+ 00:00:00 [facility] Influenza Virus 2017-04-09 Completed [facility] IM 3+ 00:00:00 [facility] Influenza Virus 2017-04-09 Completed [facility] IM 3+ 00:00:00 [facility] Influenza Virus 2017-04-09 Completed [facility] IM 3+ 00:00:00 [facility] Influenza Virus 2017-04-09 Completed [facility] IM 3+ 00:00:00 [facility] Influenza Virus 2017-04-09 Completed [facility] IM 3+ 00:00:00 [facility] Influenza Virus 2017-04-09 Completed [facility] IM 3+ 00:00:00 [facility] Influenza Virus 2017-04-09 Completed [facility] IM 3+ 00:00:00 [facility] Influenza Virus 2017-04-09 Completed [facility] IM 3+ 00:00:00 [facility] Influenza Virus 2017-04-09 Completed [facility] IM 3+ 00:00:00 [facility] Influenza Virus 2017-04-09 Completed [facility] IM 3+ 00:00:00 [facility] Influenza Virus 2017-04-09 Completed [facility] IM 3+ 00:00:00 [facility] Influenza Virus 2017-04-09 Completed [facility] IM 3+ 00:00:00 [facility] Influenza Virus 2017-04-09 Completed [facility] IM 3+ 00:00:00 [facility] Influenza Virus 2017-04-09 Completed [facility] IM 3+ 00:00:00 [facility] Influenza Virus 2017-04-09 Completed [facility] IM 3+ 00:00:00 [facility] Influenza Virus 2017-04-09 Completed [facility] IM 3+ 00:00:00 [facility] Influenza Virus 2017-04-09 Completed [facility] IM 3+ 00:00:00 [facility] Influenza Virus 2017-04-09 Completed [facility] IM 3+ 00:00:00 [facility] Influenza Virus 2017-04-09 Completed [facility] IM 3+ 00:00:00 [facility] Influenza Virus 2017-04-09 Completed [facility] IM 3+ 00:00:00 [facility] Influenza Virus 2017-04-09 Completed [facility] IM 3+ 00:00:00 [facility] Influenza Virus 2017-04-09 Completed [facility] IM 3+ 00:00:00 [facility] Influenza Virus 2017-04-09 Completed [facility] IM 3+ 00:00:00 [facility] Influenza Virus 2017-04-09 Completed [facility] IM 3+ 00:00:00 [facility] Influenza Virus 2017-04-09 Completed [facility] IM 3+ 00:00:00 [facility] Influenza Virus 2017-04-09 Completed [facility] IM 3+ 00:00:00 [facility] Influenza Virus 2017-04-09 Completed [facility] IM 3+ 00:00:00 [facility] Influenza Virus 2017-04-09 Completed [facility] IM 3+ 00:00:00 [facility] Influenza Virus 2017-04-09 Completed [facility] IM 3+ 00:00:00 [facility] Influenza Virus 2017-04-09 Completed [facility] IM 3+ 00:00:00 [facility] Influenza Virus 2017-04-09 Completed [facility] IM 3+ 00:00:00 [facility] Influenza Virus 2017-04-09 Completed [facility] IM 3+ 00:00:00 [facility] Influenza Virus 2017-04-09 Completed [facility] IM 3+ 00:00:00 [facility] Influenza Virus 2017-04-09 Completed [facility] IM 3+ 00:00:00 [facility] Influenza Virus 2017-04-09 Completed [facility] IM 3+ 00:00:00 [facility] Influenza Virus 2017-04-09 Completed [facility] IM 3+ 00:00:00 [facility] Influenza Virus 2017-04-09 Completed [facility] IM 3+ 00:00:00 [facility] Influenza Virus 2017-04-09 Completed [facility] IM 3+ 00:00:00 [facility] Influenza Virus 2017-04-09 Completed [facility] IM 3+ 00:00:00 [facility] Influenza Virus 2017-04-09 Completed [facility] IM 3+ 00:00:00 [facility] Influenza Virus 2017-04-09 Completed [facility] IM 3+ 00:00:00 [facility] Influenza Virus 2015-11-25 Completed [facility] IM 3+ 00:00:00 [facility] Influenza Virus 2015-11-25 Completed [facility] IM 3+ 00:00:00 [facility] Influenza Virus 2015-11-25 Completed [facility] IM 3+ 00:00:00 [facility] Influenza Virus 2015-11-25 Completed [facility] IM 3+ 00:00:00 [facility] Influenza Virus 2015-11-25 Completed [facility] IM 3+ 00:00:00 [facility] Influenza Virus 2015-11-25 Completed [facility] IM 3+ 00:00:00 [facility] Influenza Virus 2015-11-25 Completed [facility] IM 3+ 00:00:00 [facility] Influenza Virus 2015-11-25 Completed [facility] IM 3+ 00:00:00 [facility] Influenza Virus 2015-11-25 Completed [facility] IM 3+ 00:00:00 [facility] Influenza Virus 2015-11-25 Completed [facility] IM 3+ 00:00:00 [facility] Influenza Virus 2015-11-25 Completed [facility] IM 3+ 00:00:00 [facility] Influenza Virus 2015-11-25 Completed [facility] IM 3+ 00:00:00 [facility] Influenza Virus 2015-11-25 Completed [facility] IM 3+ 00:00:00 [facility] Influenza Virus 2015-11-25 Completed [facility] IM 3+ 00:00:00 [facility] Influenza Virus 2015-11-25 Completed [facility] IM 3+ 00:00:00 [facility] Influenza Virus 2015-11-25 Completed [facility] IM 3+ 00:00:00 [facility] Influenza Virus 2015-11-25 Completed [facility] IM 3+ 00:00:00 [facility] Influenza Virus 2015-11-25 Completed [facility] IM 3+ 00:00:00 [facility] Influenza Virus 2015-11-25 Completed [facility] IM 3+ 00:00:00 [facility] Influenza Virus 2015-11-25 Completed [facility] IM 3+ 00:00:00 [facility] Influenza Virus 2015-11-25 Completed [facility] IM 3+ 00:00:00 [facility] Influenza Virus 2015-11-25 Completed [facility] IM 3+ 00:00:00 [facility] Influenza Virus 2015-11-25 Completed [facility] IM 3+ 00:00:00 [facility] Influenza Virus 2015-11-25 Completed [facility] IM 3+ 00:00:00 [facility] Influenza Virus 2015-11-25 Completed [facility] IM 3+ 00:00:00 [facility] Influenza Virus 2015-11-25 Completed [facility] IM 3+ 00:00:00 [facility] Influenza Virus 2015-11-25 Completed [facility] IM 3+ 00:00:00 [facility] Influenza Virus 2015-11-25 Completed [facility] IM 3+ 00:00:00 [facility] Influenza Virus 2015-11-25 Completed [facility] IM 3+ 00:00:00 [facility] Influenza Virus 2015-11-25 Completed [facility] IM 3+ 00:00:00 [facility] Influenza Virus 2015-11-25 Completed [facility] IM 3+ 00:00:00 [facility] Influenza Virus 2015-11-25 Completed [facility] IM 3+ 00:00:00 [facility] Influenza Virus 2015-11-25 Completed [facility] IM 3+ 00:00:00 [facility] Influenza Virus 2015-11-25 Completed [facility] IM 3+ 00:00:00 [facility] Influenza Virus 2015-11-25 Completed [facility] IM 3+ 00:00:00 [facility] Influenza Virus 2015-11-25 Completed [facility] IM 3+ 00:00:00 [facility] Influenza Virus 2015-11-25 Completed [facility] IM 3+ 00:00:00 [facility] Influenza Virus 2015-11-25 Completed [facility] IM 3+ 00:00:00 [facility] Influenza Virus 2015-11-25 Completed [facility] IM 3+ 00:00:00 [facility] Influenza Virus 2015-11-25 Completed [facility] IM 3+ 00:00:00 [facility] Influenza Virus 2015-11-25 Completed [facility] IM 3+ 00:00:00 [facility] Influenza Virus 2015-11-25 Completed [facility] IM 3+ 00:00:00 [facility] Influenza Virus 2015-11-25 Completed [facility] IM 3+ 00:00:00 [facility] Influenza Virus 2015-11-25 Completed [facility] IM 3+ 00:00:00 [facility] Influenza Virus 2015-11-25 Completed [facility] IM 3+ 00:00:00 [facility] Influenza Virus 2015-11-25 Completed [facility] IM 3+ 00:00:00 [facility] TDAP 2014-03-26 Completed [facility] 00:00:00 [facility] Influenza Virus 2014-03-26 Completed [facility] IM 3+ 00:00:00 [facility] TDAP 2014-03-26 Completed [facility] 00:00: [facility] Influenza Virus 2014-03-26 Completed [facility] IM 3+ 00:00:00 [facility] TDAP 2014-03-26 Completed [facility] 00:00:00 [facility] Influenza Virus 2014-03-26 Completed [facility] IM 3+ 00:00:00 [facility] TDAP 2014-03-26 Completed [facility] 00:00:00 [facility] Influenza Virus 2014-03-26 Completed [facility] IM 3+ 00:00:00 [facility] TDAP 2014-03-26 Completed [facility] 00:00:00 [facility] Influenza Virus 2014-03-26 Completed [facility] IM 3+ 00:00:00 [facility] TDAP 2014-03-26 Completed [facility] 00:00:00 [facility] Influenza Virus 2014-03-26 Completed [facility] IM 3+ 00:00:00 [facility] TDAP 2014-03-26 Completed [facility] 00:00:00 [facility] Influenza Virus 2014-03-26 Completed [facility] IM 3+ 00:00:00 [facility] TDAP 2014-03-26 Completed [facility] 00:00:00 [facility] Influenza Virus 2014-03-26 Completed [facility] IM 3+ 00:00:00 [facility] TDAP 2014-03-26 Completed [facility] 00:00: [facility] Influenza Virus 2014-03-26 Completed [facility] IM 3+ 00:00:00 [facility] TDAP 2014-03-26 Completed [facility] 00:00:00 [facility] Influenza Virus 2014-03-26 Completed [facility] IM 3+ 00:00:00 [facility] TDAP 2014-03-26 Completed [facility] 00:00:00 [facility] Influenza Virus 2014-03-26 Completed [facility] IM 3+ 00:00:00 [facility] TDAP 2014-03-26 Completed [facility] 00:00:00 [facility] Influenza Virus 2014-03-26 Completed [facility] IM 3+ 00:00:00 [facility] TDAP 2014-03-26 Completed [facility] 00:00:00 [facility] Influenza Virus 2014-03-26 Completed [facility] IM 3+ 00:00:00 [facility] TDAP 2014-03-26 Completed [facility] 00:00:00 [facility] Influenza Virus 2014-03-26 Completed [facility] IM 3+ 00:00:00 [facility] TDAP 2014-03-26 Completed [facility] 00:00:00 [facility] Influenza Virus 2014-03-26 Completed [facility] IM 3+ 00:00:00 [facility] TDAP 2014-03-26 Completed [facility] 00:00:00 [facility] Influenza Virus 2014-03-26 Completed [facility] IM 3+ 00:00:00 [facility] TDAP 2014-03-26 Completed [facility] 00:00:00 [facility] Influenza Virus 2014-03-26 Completed [facility] IM 3+ 00:00:00 [facility] TDAP 2014-03-26 Completed [facility] 00:00:00 [facility] Influenza Virus 2014-03-26 Completed [facility] IM 3+ 00:00:00 [facility] TDAP 2014-03-26 Completed [facility] 00:00:00 [facility] Influenza Virus 2014-03-26 Completed [facility] IM 3+ 00:00:00 [facility] TDAP 2014-03-26 Completed [facility] 00:00:00 [facility] Influenza Virus 2014-03-26 Completed [facility] IM 3+ 00:00:00 [facility] TDAP 2014-03-26 Completed [facility] 00:00:00 [facility] Influenza Virus 2014-03-26 Completed [facility] IM 3+ 00:00:00 [facility] TDAP 2014-03-26 Completed [facility] 00:00:00 [facility] Influenza Virus 2014-03-26 Completed [facility] IM 3+ 00:00:00 [facility] TDAP 2014-03-26 Completed [facility] 00:00:00 [facility] Influenza Virus 2014-03-26 Completed [facility] IM 3+ 00:00:00 [facility] TDAP 2014-03-26 Completed [facility] 00:00:00 [facility] Influenza Virus 2014-03-26 Completed [facility] IM 3+ 00:00:00 [facility] TDAP 2014-03-26 Completed University of 00:00: [facility] Influenza Virus 2014-03-26 Completed Universit y of Vaccine Quad IM 3+ 00:00:00 [facility] TDAP 2014-03-26 Completed University of 00:00:00 [facility] Influenza Virus 2014-03-26 Completed Universit y of Vaccine Quad IM 3+ 00:00:00 [facility] TDAP 2014-03-26 Completed University of 00:00:00 [facility] Influenza Virus 2014-03-26 Completed Universit y of Vaccine Quad IM 3+ 00:00:00 [facility] TDAP 2014-03-26 Completed University of 00:00:00 [facility] Influenza Virus 2014-03-26 Completed Universit y of Vaccine Quad IM 3+ 00:00:00 [facility] TDAP 2014-03-26 Completed University of 00:00:00 [facility] Influenza Virus 2014-03-26 Completed Universit y of Vaccine Quad IM 3+ 00:00:00 [facility] TDAP 2014-03-26 Completed University of 00:00:00 [facility] Influenza Virus 2014-03-26 Completed Universit y of Vaccine Quad IM 3+ 00:00:00 [facility] TDAP 2014-03-26 Completed University of 00:00:00 [facility] Influenza Virus 2014-03-26 Completed Universit y of Vaccine Quad IM 3+ 00:00:00 [facility] TDAP 2014-03-26 Completed University of 00:00:00 [facility] Influenza Virus 2014-03-26 Completed Universit y of Vaccine Quad IM 3+ 00:00:00 [facility] TDAP 2014-03-26 Completed University of 00:00:00 [facility] Influenza Virus 2014-03-26 Completed Universit y of Vaccine Quad IM 3+ 00:00:00 [facility] TDAP 2014-03-26 Completed University of 00:00:00 [facility] Influenza Virus 2014-03-26 Completed Universit y of Vaccine Quad IM 3+ 00:00:00 [facility] TDAP 2014-03-26 Completed University of 00:00:00 [facility] Influenza Virus 2014-03-26 Completed Universit y of Vaccine Quad IM 3+ 00:00:00 [facility] TDAP 2014-03-26 Completed University of 00:00:00 [facility] Influenza Virus 2014-03-26 Completed Universit y of Vaccine Quad IM 3+ 00:00:00 [facility] TDAP 2014-03-26 Completed University of 00:00:00 [facility] Influenza Virus 2014-03-26 Completed Universit y of Vaccine Quad IM 3+ 00:00:00 [facility] TDAP 2014-03-26 Completed University of 00:00:00 [facility] Influenza Virus 2014-03-26 Completed Universit y of Vaccine Quad IM 3+ 00:00:00 [facility] TDAP 2014-03-26 Completed University of 00:00:00 [facility] Influenza Virus 2014-03-26 Completed Universit y of Vaccine Quad IM 3+ 00:00:00 [facility] TDAP 2014-03-26 Completed University of 00:00:00 [facility] Influenza Virus 2014-03-26 Completed Universit y of Vaccine Quad IM 3+ 00:00:00 [facility] TDAP 2014-03-26 Completed University of 00:00:00 [facility] Influenza Virus 2014-03-26 Completed Universit y of Vaccine Quad IM 3+ 00:00:00 [facility] TDAP 2014-03-26 Completed University of 00:00:00 [facility] Influenza Virus 2014-03-26 Completed Universit y of Vaccine Quad IM 3+ 00:00:00 [facility] TDAP 2014-03-26 Completed University of 00:00:00 [facility] Influenza Virus 2014-03-26 Completed Universit y of Vaccine Quad IM 3+ 00:00:00 [facility] TDAP 2014-03-26 Completed University of 00:00:00 [facility] Influenza Virus 2014-03-26 Completed Universit y of Vaccine Quad IM 3+ 00:00:00 [facility] TDAP 2014-03-26 Completed University of 00:00:00 [facility] Influenza Virus 2014-03-26 Completed Universit y of Vaccine Quad IM 3+ 00:00:00 [facility] TDAP 2014-03-26 Completed University of 00:00:00 [facility] Influenza Virus 2014-03-26 Completed Universit y of Vaccine Quad IM 3+ 00:00:00 [facility] TDAP Unknown Completed [facility] Influenza Virus Unknown Completed Universit y of Vaccine Quad IM 3+ [facility] Influenza Virus Unknown Completed Universit y of Vaccine Quad IM 3+ [facility] Influenza Virus Unknown Completed Universit y of Vaccine Quad IM 3+ [facility] Influenza Virus Unknown Completed Universit y of Vaccine Quad .[address] [facility] IM 6+ MO Branch (FLUZONE/FLULAVAL/F LUARIX) Influenza Virus Unknown Completed Universit y of Vaccine Quad .[address] [facility] [place] IM 6+ MO Branch (FLUZONE/FLULAVAL/F LUARIX) Influenza Virus Unknown Completed Universit y of Vaccine Quad .5 mL [facility] 6+ MO Branch (FLUZONE/FLULAVAL/F LUARIX) SARS-COV-2 COVID-19 Unknown Completed Unive rsity of PFIZER VACCINE [facility] SARS-COV-2 COVID-19 Unknown Completed Unive rsity of PFIZER VACCINE [facility] TDAP Unknown Completed [facility] Influenza Virus Unknown Completed Universit y of Vaccine Quad IM 3+ [facility] Influenza Virus Unknown Completed Universit y of Vaccine Quad IM 3+ [facility] Influenza Virus Unknown Completed Universit y of Vaccine Quad IM 3+ [facility] Influenza Virus Unknown Completed Universit y of Vaccine Quad .5 mL [facility] 6+ MO Branch (FLUZONE/FLULAVAL/F LUARIX) Influenza Virus Unknown Completed Universit y of Vaccine Quad .5 mL [facility] 6+ MO Branch (FLUZONE/FLULAVAL/F LUARIX) TDAP Unknown Completed [facility] Influenza Virus Unknown Completed Universit y of Vaccine Quad IM 3+ [facility] Influenza Virus Unknown Completed Universit y of Vaccine Quad IM 3+ [facility] Influenza Virus Unknown Completed Universit y of Vaccine Quad IM 3+ [facility] Influenza Virus Unknown Completed Universit y of Vaccine Quad .5 mL [facility] 6+ MO Branch (FLUZONE/FLULAVAL/F LUARIX) Influenza Virus Unknown Completed Universit y of Vaccine Quad .5 mL [facility] 6+ MO Branch (FLUZONE/FLULAVAL/F LUARIX) TDAP Unknown Completed [facility] Influenza Virus Unknown Completed [facility] Vacc[facility] IM 3+ [facility] Influenza Virus Unknown Completed Universit y of Vaccine Quad IM 3+ [facility] Influenza Virus Unknown Completed Universit y of Vaccine Quad IM 3+ [facility] Branch Influenza Virus Unknown Completed Universit y of Vaccine Quad .[address] [facility] [place] IM 6+ MO Branch (FLUZONE/FLULAVAL/F LUARIX) Influenza Virus Unknown Completed Universit y of Vaccine Quad .[address] [facility] [place] IM 6+ MO Branch (FLUZONE/FLULAVAL/F LUARIX) Influenza Virus Unknown Completed Universit y of Vaccine Quad .5 mL [facility] 6+ MO Branch (FLUZONE/FLULAVAL/F LUARIX) SARS-COV-2 COVID-19 Unknown Completed Unive rsity of PFIZER VACCINE [facility] SARS-COV-2 COVID-19 Unknown Completed Unive rsity of PFIZER VACCINE [facility] Influenza Virus Unknown Completed Universit y of Vaccine Quad , [facility] dical Preserv and ABX Branch Free 6 MO-64 YRS (FLUCELVAX) TDAP Unknown Completed [facility] Influenza Virus Unknown Completed Universit y of Vaccine Quad IM 3+ [facility] Branch Influenza Virus Unknown Completed Universit y of Vaccine Quad IM 3+ [facility] Branch Influenza Virus Unknown Completed Universit y of Vaccine Quad IM 3+ [facility] Influenza Virus Unknown Completed Universit y of Vaccine Quad .5 mL [facility] 6+ MO Branch (FLUZONE/FLULAVAL/F LUARIX) Influenza Virus Unknown Completed Universit y of Vaccine Quad .5 mL [facility] 6+ MO Branch (FLUZONE/FLULAVAL/F LUARIX) Influenza Virus Unknown Completed Universit y of Vaccine Quad .5 mL [facility] 6+ MO Branch (FLUZONE/FLULAVAL/F LUARIX) SARS-COV-2 COVID-19 Unknown Completed Unive rsity of PFIZER VACCINE [facility] SARS-COV-2 COVID-19 Unknown Completed Unive rsity of PFIZER VACCINE [facility] Influenza Virus Unknown Completed Universit y of Vaccine Quad IM, [facility] dical Preserv and ABX Branch Free 6 MO-64 YRS (FLUCELVAX) TDAP Unknown Completed [facility] Influenza Virus Unknown Completed Universit y of Vaccine Quad IM 3+ [facility] Influenza Virus Unknown Completed [facility]it y of Vaccine Quad IM 3+ [facility] Influenza Virus Unknown Completed [facility]it y of Vaccine Quad IM 3+ [facility] Influenza Virus Unknown Completed [facility]it y of Vaccine Quad .5 mL [facility] IM 6+ MO Branch (FLUZONE/FLULAVAL/F LUARIX) Influenza Virus Unknown Completed Universit y of Vaccine Quad .[address] [facility] [place] IM 6+ MO Branch (FLUZONE/FLULAVAL/F LUARIX) Influenza Virus Unknown Completed Universit y of Vaccine Quad .[address] [facility] [place] IM 6+ MO Branch (FLUZONE/FLULAVAL/F LUARIX) SARS-COV-2 COVID-19 Unknown Completed Unive rsity of PFIZER VACCINE [facility] SARS-COV-2 COVID-19 Unknown Completed Unive rsity of PFIZER VACCINE [facility] Influenza Virus Unknown Completed [facility] Vaccine [facility] IM, [place] [facility] Preserv and ABX Branch Free 6 MO-64 YRS (FLUCELVAX) Vital Signs Vital Name Observation Time Observation Value Comments Source Systolic blood 2022-09-05 18:58:00 137 mm[Hg] Univer sity of [facility] Diastolic blood 2022-09-05 18:58:00 84 mm[Hg] Unive rsity of [facility] Heart rate 2022-09-05 18:58:00 72 /min [facility] Body temperature 2022-09-05 18:58:00 36.28 Shahnaz [facility] Body weight 2022-09-05 18:58:00 87.862 kg [facility] BMI 2022-09-05 18:58:00 29.45 kg/m2 [facility] Oxygen saturation in 2022-09-05 18:58:00 98 /min [facility] Arterial blood by [facility] Pulse oximetry Branch Systolic blood 2022-04-24 19:22:00 134 mm[Hg] Univer sity of pressure [facility] Diastolic blood 2022-04-24 19:22:00 89 mm[Hg] Unive rsity of [facility] Heart rate 2022-04-24 19:22:00 71 /min [facility] Body temperature 2022-04-24 19:22:00 36.83 Shahnaz [facility] Res[facility] rate 2022-04-24 19:22:00 18 /min Univ ers[facility] Body weight 2022-04-24 19:22:00 87.119 kg [facility] BMI 2022-04-24 19:22:00 29.20 kg/m2 [facility] Oxygen saturation in 2022-04-24 19:22:00 96 /min University of Arterial blood by [facility] ilir Pulse oximetry Branch Systolic blood 2022-03-19 15:27:00 138 mm[Hg] Univer sity of pressure [facility] Diastolic blood 2022-03-19 15:27:00 87 mm[Hg] Unive rsity of pressure [facility] Heart rate 2022-03-19 15:27:00 69 /min [facility] Body temperature 2022-03-19 15:27:00 36.5 Shahnaz Univ ers[facility] Body height 2022-03-19 15:27:00 172.7 cm [facility] Body weight 2022-03-19 15:27:00 86.592 kg [facility] BMI 2022-03-19 15:27:00 29.03 kg/m2 [facility] Oxygen saturation in 2022-03-19 15:27:00 99 /min University of Arterial blood by [facility] Pulse oximetry Branch Systolic blood 2022-01-24 20:42:00 134 mm[Hg] Univer sity of pressure [facility] Diastolic blood 2022-01-24 20:42:00 90 mm[Hg] Unive rsity of pressure [facility] Heart rate 2022-01-24 20:42:00 68 /min [facility] Body temperature 2022-01-24 20:42:00 37 Shahnaz Univ [facility] Respiratory rate 2022-01-24 20:42:00 20 /min Univ [facility] Body height 2022-01-24 20:42:00 172.7 cm [facility] Body weight 2022-01-24 20:42:00 82.328 kg [facility] BMI 2022-01-24 20:42:00 27.60 kg/m2 [facility] Oxygen saturation in 2022-01-24 20:42:00 99 /min University of Arterial blood by [facility] ilir Pulse oximetry Branch Systolic blood 2021-12-26 21:05:00 128 mm[Hg] Univer sity of pressure [facility] Diastolic blood 2021-12-26 21:05:00 77 mm[Hg] Unive rsity of pressure [facility] Heart rate 2021-12-26 21:05:00 62 /min [facility] Body height 2021-12-26 21:05:00 172.7 cm [facility] Body weight 2021-12-26 21:05:00 81.239 kg [facility] BMI 2021-12-26 21:05:00 27.23 kg/m2 [facility] Systolic blood 2021-11-14 20:47:00 142 mm[Hg] Univer sity of pressure [facility] Diastolic blood 2021-11-14 20:47:00 83 mm[Hg] Unive rsity of pressure [facility] Heart rate 2021-11-14 20:45:00 76 /min [facility] Respiratory rate 2021-11-14 20:45:00 19 /min Univ ersity [facility] Body height 2021-11-14 20:45:00 172.7 cm [facility] Body weight 2021-11-14 20:45:00 74.39 kg [facility] BMI 2021-11-14 20:45:00 24.94 kg/m2 [facility] Oxygen saturation in 2021-11-14 20:45:00 98 /min University of Arterial blood by [facility] ilir Pulse oximetry Branch Systolic blood 2021-10-09 18:21:00 134 mm[Hg] Univer sity of pressure [facility] Diastolic blood 2021-10-09 18:21:00 84 mm[Hg] Unive rsity of pressure [facility] Heart rate 2021-10-09 18:21:00 76 /min [facility] Body temperature 2021-10-09 18:21:00 37.11 Shahnaz Univ [facility] Respiratory rate 2021-10-09 18:21:00 18 /min Univ [facility] Body height 2021-10-09 18:21:00 172.7 cm [facility] Body weight 2021-10-09 18:21:00 78.291 kg [facility] BMI 2021-10-09 18:21:00 26.24 kg/m2 [facility] Procedures Procedure Date / Time Performed Performing Clinician Judith beaver [facility] PATIENT 2022-04-24 18:56:07 Doctor Unassigned, No [facility] FINANCIAL POLICY Name [facility] FLU VACC (), 2022-03-19 16:19:28 Carmella Moise [facility] 6 MO-64 YRS, .5ML, [facility] Branc h IM, QUAD (FLUCELVAX) CONSENT/REFUSAL FOR 2022-03-19 15:08:49 Doctor Unassigned, No Un [facility] DIAGNOSIS AND Name [facility] TREATMENT POCT MOLECULAR FLU 2022-01-24 20:34:00 Unknown, Attending [facility] POCT MOLECULAR STREP 2022-01-24 20:31:00 Unknown, Attending [facility] Encounters Start End Encounter Admission Attending Care Care Encounter Source Date/Time Date/Time Type Type Clinicians Facility Department ID 2023-01-03 2023-01-03 [facility] 1.2.840.114 [id number] Univers 00:00:00 00:00:00 Carmella LOCK [id number] it y of [facility] [id number] Joselo as PEDIATRIC [phone] [facility] AND [address] [place] [address] E CLINIC 2023-01-03 2023-01-03 Patient [facility] 1.2.840.114 [id number] Univers 00:00:00 00:00:00 Secure Msg Carmella LOCK [id number] ity of [facility] [id number] Joselo as PEDIATRIC [phone] [facility] AND [address] [place] [address] E CLINIC 2022-12-15 2022-12-15 [facility] 1.2.840.114 [id number] Univers 00:00:00 00:00:00 Carmella LEAGUE [id number] it y of [facility] [id number] Joselo as PEDIATRIC [phone] Me dical AND [address] [facility] 2022-11-05 2022-11-05 Telephone [facility] 1.2.840.114 [id number] Univers 00:00:00 00:00:00 Carmella LEAGUE [id number] it y of [facility] [id number] Joselo as PEDIATRIC [phone] Me dical AND [address] [place] [address] [facility]IC 2022-10-31 2022-10-31 Refill [facility] 1.2.840.114 [id number] Univers 00:00:00 00:00:00 Carmella LEAGUE [id number] it y of [facility] [id number] Joselo as PEDIATRIC [phone] Me dical AND [address] [place] [address] [facility]IC 2022-10-23 2022-10-23 Refill [facility] 1.2.840.114 [id number] Univers 00:00:00 00:00:00 Carmella LEAGUE [id number] it y of [facility] [id number] Joselo as PEDIATRIC [phone] Me dical AND [address] [place] [address] E CLINIC 2022-10-23 2022-10-23 Patient [facility] 1.2.840.114 [id number] Univers 00:00:00 00:00:00 Secure Msg Carmella LEAGUE [id number] ity of [facility] [id number] Joselo as PEDIATRIC [phone] Me dical AND [address] [facility] E CLINIC 2022-10-03 2022-10-03 Telephone [facility] 1.2.840.114 [id number] Univers 00:00:00 00:00:00 Carmella LEAGUE [id number] it y of [facility] [id number] Joselo as PEDIATRIC [phone] Me dical AND [address] [place] [address] E CLINIC 2022-09-28 2022-09-28 Refill [facility] 1.2.840.114 [id number] Univers 00:00:00 00:00:00 Carmella LOCK [id number] it y of [facility] [id number] Joselo as PEDIATRIC [id number] Va dical AND [address] [place] [address]IC 2022-09-10 2022-09-10 Telephone [facility] 1.2.840.114 [id number] Univers 00:00:00 00:00:00 Carmella BACONREGI [id number] it y of [facility] [id number] Joselo as PEDIATRIC [phone] Va dical AND [address] [place] [address] E CLINIC 2022-09-05 2022-09-05 Office [facility] 1.2.840.114 [id number] Univers 14:00:00 14:20:00 Visit Carmella BACONREGI [id number] it y of [facility] [id number] Joselo as PEDIATRIC [id number] [facility] dicmt AND [address] [place] [address] E CLINIC 2022-09-05 2022-09-05 [facility] [id number] Univers 14:00:00 14:00:[address] [facility] 2022-09-05 2022-09-05 Telephone [facility] 1.2.840.114 [id number] Univers 00:00:00 00:00:00 Carmella BACONREGI [id number] it y of [facility] [id number] Joselo as PEDIATRIC [phone] [facility] dicmt AND [address] [place] [address] E CLINIC 2022-06-20 2022-06-20 Refill [facility] 1.2.840.114 [id number] Univers 00:00:00 00:00:00 Carmella BACONREGI [id number] it y of [facility] [id number] Joselo as PEDIATRIC [phone] Va dical AND [address] [place] [address] E CLINIC 2022-05-22 2022-05-22 [facility] 1.2.840.114 [id number] Univers 00:00:00 00:00:00 Carmella LEREGI [id number] it y of [facility] [id number] Joselo as PEDIATRIC [id number] Va dicmt AND [address] [place] [address] E CLINIC 2022-05-15 2022-05-15 Patient Jose Maria [facility] 1.2.840.114 [id number] Univers 00:00:00 00:00:00 Secure Msg Carmella LEAGUE [id number] ity of [facility] [id number] Joselo as PEDIATRIC [phone] Va dicmt AND [address] [place] [address] E CLINIC 2022-04-24 2022-04-24 Office Sami [facility] 1.2.840.114 [id number] Univers 13:40:00 14:00:00 Visit HAYDE [id number] it y of [facility] [id number] [place] [id number] [facility] AND [address] [place] [address] E CLINIC 2022-04-24 2022-04-24 Outpatient R SAMI [facility] [id number] Univers 13:40:00 13:40:00 ity of [facility] 2022-04-24 2022-04-24 Orders Doctor RENÉ 1.2.840.114 [id number] Univers 00:00:00 00:00:00 Only Unassigned, LUKE [id number] [place] [facility] [id number] Joselo as [phone] [address] 2022-04-19 2022-04-19 [facility] 1.2.840.114 [id number] Univers 00:00:00 00:00:00 Carmella LEAGUE [id number] it y of [facility] [id number] Joselo as PEDIATRIC [id number] [facility] dicmt AND [address] [place] [address] E CLINIC 2022-04-18 2022-04-18 [facility]arda [facility] 1.2.840.114 [id number] Univers 00:00:00 00:00:00 Carmella LEAGUE [id number] it y of [facility] [id number] Joselo as PEDIATRIC [phone] [facility] dicmt AND [address] [place] [address] E CLINIC 2022-03-22 2022-03-22 Patient Jose Maria [facility] 1.2.840.114 [id number] Univers 00:00:00 00:00:00 Secure Msg Carmella HAYDE [id number] ity of [facility] [id number] Joselo as PEDIATRIC [phone] [facility] dicmt AND [address] [place] [address] E CLINIC 2022-03-19 2022-03-19 Office [facility] 1.2.840.114 [id number] Univers 09:40:00 10:00:00 Visit Carmella LOCK [id number] it y of [facility] [id number] Joselo as PEDIATRIC [phone] [facility] AND [address] [place] [address] E CLINIC 2022-03-19 2022-03-19 Outpatient R JOSE MARIA [facility] [id number] Univers 09:40:00 09:40:00 CARMELLA ity of [facility] 2022-03-19 2022-03-19 Orders Doctor RENÉ 1.2.840.114 [id number] Univers 00:00:00 00:00:00 Only Unassigned, LUKE [id number] [place] [facility] [id number] Joselo as [id number] [address] 2022-03-19 2022-03-19 Telephone Jose Maria [facility] 1.2.840.114 [id number] Univers 00:00:00 00:00:00 Carmella HAYDE [id number] it y of [facility] [id number] Joselo as PEDIATRIC [phone] Va dicmt AND [address] [place] [address] E CLINIC 2022-03-13 2022-03-13 Pre Visit CONNOR Parra 1.2.680.915 [id number] Univers 00:00:00 00:00:00 Outreach Nhi L WENDY [id number] i ty of [place] 4.2.7.2.686 [place] [phone] [facility] [address] 2022-03-07 2022-03-07 Telephone [facility] 1.2.840.114 [id number] Univers 00:00:00 00:00:00 Carmella LEAGUE [id number] it y of [facility] [id number] Joselo as PEDIATRIC [phone] Me dical AND [address] [place] [address] [facility] 2022-03-06 2022-03-06 Refill [facility] 1.2.840.114 [id number] Univers 00:00:00 00:00:00 Carmella LEAGUE [id number] it y of [facility] [id number] Joselo as PEDIATRIC [phone] Va dical AND [address] [place] [address] 2022-03-01 2022-03-01 Refill [facility] 1.2.840.114 [id number] Univers 00:00:00 00:00:00 Carmella LEAGUE [id number] it y of [facility] [id number] Joselo as PEDIATRIC [phone] Va dical AND [address] [place] [address] 2022-03-01 2022-03-01 Patient [facility] 1.2.840.114 [id number] Univers 00:00:00 00:00:00 Secure Msg Carmella LEAGUE [id number] ity of [facility] [id number] Joselo as PEDIATRIC [phone] Va dicmt AND [address] [place] [address] 2022-02-20 2022-02-20 Bernadette [facility] 1.2.261.594 [id number] Univers 00:00:00 00:00:00 Cassie [facility] [id number] ity of [place] 4.2.7.2.686 [place] [facility] [phone] [facility] PRIMARY & [address] SPECIALTY CARE 2022-01-24 2022-01-24 Outpatient R ARACELIS [facility] [id number] Univers 14:30:00 14:56:47 CASSIE amador of [facility] 2022-01-24 2022-01-24 Urgent Cassie Woo [facility] 1.2. 840.114 [id number] Univers 14:30:00 14:56:47 Care Unknown, Attending HEALTH 350.1.13.10 ity of [place] 4.2.7.2.686 [place] courtney [facility] [phone] [facility] PRIMARY & [facility] Branch SPECIALTY CARE 2022-01-22 2022-01-22 Outpatient R KYLE [facility] [id number] Univers 14:00:00 14:00:[address] [facility] 2022-01-15 2022-01-15 Refill [facility] 1.2.840.114 [id number] Univers 00:00:00 00:00:00 Carmella LEAGUE 350.1.13.10 it y of [facility] 4.2.7.2.686 Joselo as PEDIATRIC [phone] Me dical AND [address] [place] [address] [facility] CLIN[facility] 2022-01-01 2022-01-01 Refill [facility] 1.2.840.114 [id number] Univers 00:00:00 00:00:00 Carmella LEAGUE 350.1.13.10 it y of [facility] [id number] Joselo as PEDIATRIC [phone] Me dical AND [address] [place] [address] [facility] 2022-01-01 2022-01-01 Patient [facility] 1.2.840.114 [id number] Univers 00:00:00 00:00:00 Secure Msg Carmella LEAGUE 350.1.13.10 ity of [facility] [id number] Joselo as PEDIATRIC [phone] Me dical AND [address] [place] [address] [facility] 2021-12-31 2021-12-31 Patient [facility] 1.2.840.114 [id number] Univers 00:00:00 00:00:00 Secure Msg Carmella LEAGUE 350.1.13.10 ity of [facility] 4.2.7.2.686 Joselo as PEDIATRIC [phone] Me dical AND [address] [place] [address] [facility] 2021-12-30 2021-12-30 [facility] [id number] Univers 00:00:00 00:00:[address] [facility] 2021-12-27 2021-12-27 Hospital NINA Davila 1.2.840.114 [id number] Univers 15:03:00 23:59:00 Encounter Zach Brice 350.1.13.10 ity of [facility] 4.2.7.2.686 Joselo [phone] [address] 2021-12-27 2021-12-27 Outpatient [facility] ACO [id number] Univers 00:00:00 23:59:[address] [facility] 2021-12-26 2021-12-26 Outpatient [facility] [id number] Univers 16:00:00 16:45:01 ODETTE [facility] 2021-12-26 2021-12-26 Office [facility] 1.2.840.114 [id number] Univers 16:00:00 16:45:01 Visit OdetteDVS [employer] 350.1.13.10 it y of [place] 4.2.7.2.686 [facility] s [facility] [phone] [facility] PRIMARY [facility] Branch SPECIALTY CARE 2021-11-14 2021-11-14 Outpatient Michelle [facility] [id number] Univers 16:00:00 16:15:23 ODETTE [facility] 2021-11-14 2021-11-14 Office [facility] 1.2.840.114 [id number] Univers 16:00:00 16:15:23 Visit Odette [employer] 350.1.13.10 it y of [place] 4.2.7.2.686 [facility] s [place] [phone] [facility] PRIMARY [address] SPECIALTY CARE 2021-10-10 2021-10-10 Patient [facility] 1.2.840.114 [id number] Univers 00:00:00 00:00:00 Secure Msg Odette HEALTH 350.1.13.10 ity of [place] 4.2.7.2.686 [place] [phone] [facility] PRIMARY & [address] SPECIALTY CARE 2021-10-09 2021-10-09 Office MEGAN Louis 1.2.840.114 [id number] Univers 16:30:00 16:30:00 Visit Odette Quan HEALTH 350.1.13.10 i ty of CL[place] 4.2.7.2.[place] [phone] [facility] [address] 2021-10-09 2021-10-09 Manager Retail Sales [facility] 1.2.840.114 [id number] Univers 13:45:00 14:00:00 Visit Odette Louis [facility] 350.1.13.10 ity of [facility] 4.2.7.2.686 [place] [phone] [facility] [address] 2021-10-09 2021-10-09 Outpatient R [facility] [id number] Univers 16:30:00 13:54:[address] [facility] 2021-10-09 2021-10-09 Outpatient R [facility] [id number] Univers 16:30:00 13:54:[address] [facility] 2021-09-28 2021-09-28 Patient Jose Maria [facility] 1.2.840.114 [id number] Univers 00:00:00 00:00:00 Secure Msg Carmella LOCK 350.1.13.10 ity of [facility] [id number] Joselo as PEDIATRIC [phone] Va dicmt AND [address] [place] [address] 2021-08-17 2021-08-17 Office Jose [facility] 1.2.840.114 [id number] Univers 09:40:00 10:00:00 Visit Carmella LOCK 350.1.13.10 it y of [facility] 4.2.7.2.686 Joselo as PEDIATRIC [phone] Va dical AND [address] [place] [address] 2021-08-17 2021-08-17 Outpatient R JOSE MARIA [facility] [id number] Univers 09:40:00 09:40:[address] [facility] 2021-08-17 2021-08-17 Outpatient R JOSE MARIA, [facility] [id number] Univers 09:40:00 09:40:[address] [facility] 2021-08-15 2021-08-15 Pre Visit CONNOR Parra 1.2.326.306 [id number] Univers 00:00:00 00:00:00 Outreach Nhi L NGUYEN 350.1.13.10 i ty of [place] 4.2.7.2.686 [place] [phone] [id number] [place] 2021-02-25 2021-02-25 Telephone Tonya Archer 1.2.840.114 [id number] Univers 00:00:00 00:00:00 LUKE 350.1.13.10 it y [facility] 4.2.7.2.686 Joselo as [phone] [facility] [address] [place] 2021-02-24 2021-02-24 Outpatient R CHIN, [facility] [id number] Univers 11:15:00 12:30:52 LISA [facility] 2021-02-24 2021-02-24 Laboratory Only, [facility] U[facility] Test [facility] 1.2.8 40.114 [id number] Univers 11:15:00 11:30:00 Only Unknown, Attending LEAGUE 350.1.13.10 ity of [facility] 4.2.7.2.686 [place] C[place] [phone] [facility] 370 [facility] 2021-02-24 2021-02-24 Outpatient R RU, [facility] [id number] Univers 11:15:00 11:15:[address] [facility] 2021-02-16 2021-02-16 Outpatient R KELVIN, [facility] [id number] Univers 10:45:00 13:18:27 LATISHA [facility] 2021-02-16 2021-02-16 Urgent Only, [facility] Test [facility] 1.2.840. 114 [id number] Univers 11:00:00 11:15:00 Care Unknown, Attending LEAGUE 350.1.13.10 ity [facility] 4.2.7.2.686 [facility] [phone] [address] 2021-02-16 2021-02-16 Outpatient R UNKNOWN, [facility] [id number] Univers 11:00:00 11:00:00 ATTENDING ity of [facility] 2021-02-16 2021-02-16 Laboratory Only, [facility] Test [facility] 1.2.8 40.114 [id number] Univers 10:45:00 11:00:00 Only Unknown, Attending HAYDE 350.1.13.10 ity of [facility] 4.2.7.2.686 [facility] [phone] [address] 2021-02-16 2021-02-16 Outpatient R UNKNOWN, [facility] [id number] Univers 10:45:00 10:45:00 ATTENDING ity of [facility] 2021-02-10 2021-02-10 Nurse Therapy, Clc Covid Infusion [facility] 1.2.840.114 [id number] Univers 08:30:00 09:30:00 Visit Zehra Lepe [facility] 350.1.13.10 ity of [place] 4.2.7.2.686 [facility] [phone] [place] [id number] Branch OFFICE BUILDING 2021-02-10 2021-02-10 Outpatient R ROSA, [facility] [id number] Univers 08:30:00 08:30:[address] [facility] 2021-02-10 2021-02-10 Orders Doctor MERRITT 1.2.840.114 [id number] Univers 00:00:00 00:00:00 Only Unassigned, LUKE 350.1.13.[address] [place] [facility] 4.2.7.2.686 [facility] [phone] [address] 2021-02-08 2021-02-08 Laboratory Only, [facility] Test [facility] 1.2.8 40.114 [id number] Univers 12:15:00 12:15:00 Only Unknown, Attending HAYDE 350.1.13.10 ity of [place] H [facility] 4.2.7.2.686 [facility] [phone] [address] 2021-02-08 2021-02-08 Outpatient R UNKNOWN, [facility] [id number] Univers 11:45:00 11:45:00 ATTENDING [facility] 2021-02-08 2021-02-08 Outpatient R UNKNOWN, [facility] [id number] Univers 11:45:00 11:45:00 ATTENDING [facility] 2021-02-08 2021-02-08 Outpatient R UNKNOWN, [facility] [id number] Univers 11:45:00 11:45:00 ATTENDING [facility] 2021-02-08 2021-02-08 Outpatient R UNKNOWN, [facility] [id number] Univers 11:45:00 11:45:00 ATTENDING [facility] 2020-07-11 2020-07-11 Outpatient R ABRAM, [facility] [id number] Univers 14:40:00 14:40:00 PEMA [facility] 2020-07-11 2020-07-11 Outpatient GCCOVIDV GCCOVIDV [id number] GCCOVID 00:00:00 00:00:00 V 2020-06-20 2020-06-20 Outpatient JOSE, [facility] [id number] Univers 12:00:00 12:00:00 BELLA [facility] 2020-06-20 2020-06-20 Outpatient GCCOVIDV GCCOVIDV [id number] GCCOVID 00:00:00 00:00:00 V 2020-04-20 2020-04-20 Outpatient R JOSE MARIA, [facility] [id number] Univers 08:40:00 08:40:00 CARMELLA [facility] 2020-02-09 2020-02-09 Outpatient R SATISH, [facility] [id number] Univers 16:40:00 16:40:00 MICHELLE [facility] 2020-02-06 2020-02-06 Patient Doctor RENÉ 1.2.840.114 [id number] Univers 00:00:00 00:00:00 Secure Msg Unassigned, LUKE 350.1.13.[address] ity of [place] [facility] 4.2.7.2.686 Joselo as [phone] [address] 2020-02-05 2020-02-05 Outpatient R UNKNOWN, [facility] [id number] Univers 09:15:00 09:15:[address] [facility] 2020-01-05 2020-01-05 Outpatient R ADRIÁN [facility] [id number] Univers 15:00:00 15:00:[address] [facility] 2020-01-05 2020-01-05 Outpatient R [facility] [id number] Univers 09:15:00 09:15:[address] [facility] 2019-11-10 2019-11-10 [facility] 1.2.840.114 [id number] Univers 00:00:00 00:00:00 Secure HAYDE Marley 350.1.13.10 itchirag [facility] 4.2.7.2.686 [place] PEDI[place]IC [phone] [address] E CLINIC 2019-11-05 2019-11-05 Outpatient R PARMAVIS [facility] [id number] Univers 10:00:00 10:00:00 marjorie ORTEGA [facility] 2019-05-07 2019-05-07 Outpatient R [facility] [id number] Univers 08:20:00 08:20:00 marjorie ORTEGA [facility] Results Test Description Test Time Test Comments Results Result Comments Source POCT MOLECULAR FLU 2022-01-24 20:46:01 Test Item Value Reference Range Interpretation Comme nts POCT Molecular FluA (test code = 91532-8) Negative Negative POCT Molecular FluB (test code = 99746-0) Negative Negative Lab Interpretation (test code = 46581-0) Normal [facility] MOLECULAR [id number] 20:46:01 Test Item Value Reference Range Interpretation Comments POCT Molecular FluA (test code = Negative Negative 09861-5) POCT Molecular FluB (test code = Negative Negative 97008-7) Lab Interpretation (test code = Normal 09586-6) [facility] MOLECULAR [id number] 20:39:19 Test Item Value Reference Range Interpretation Comments POCT Molecular Strep (test code = Negative Negative 25664-2) Lab Interpretation (test code = Normal 56756-9) [facility] [id number] 20:39:19 Test Item Value Reference Range Interpretation Comments POCT Molecular Strep (test code = Negative Negative 66819-2) Lab Interpretation (test code = Normal 16741-6) [facility]
[2023-01-09] MEDS ORDERED: NA CHLORIDE 0.9% 1,000 ML ONE (01:11)
[2023-01-09 01:15] LABS: Absolute Lymphocytes (CBC) 2.4 K/uL (0.7-4.9); Hematocrit 43.2 % (39.6-49.0); Lymphocytes % 26.3 % (15.3-44.8); MCV 92.6 fL (80-100); MPV 9.2 fL (7.6-11.3); Platelets 245 thou/uL (152-406); RBC Red Blood Cell Count 4.67 M/uL (4.33-5.43)
[2023-01-09 01:44] LABS: ALT/SGPT 31 U/L (16-61); AST/SGOT 11 U/L (15-37); Albumin 3.7 g/dL (3.4-5.0); Alkaline Phosphatase 68 U/L (45-117); BUN Blood Urea Nitrogen 14 mg/dL (7-18); Bicarbonate 27 mEq/L (21-32); Bilirubin Total 0.5 mg/dL (0.2-1.0); Glomerular Filtration Rate 90 ml/min (=/>90); Glucose Level 128 mg/dL (74-106); Lipase 40 U/L (13-75); Potassium 3.2 mEq/L (3.5-5.1); Protein, Total 7.1 g/dL (6.4-8.2); Sodium Level 138 mEq/L (136-145); Troponin High Sensitivity 4.4 pg/mL (<58.9)
[2023-01-09 02:14] LABS: C-Reactive Protein < 2.90 mg/L (<3.00)
[2023-01-09 02:16] LABS: Specific Gravity 1.013 (1.005-1.030); Urine Bacteria None Seen /HPF (<20); Urine Bilirubin NEGATIVE (Negative); Urine Blood Negative (Negative); Urine Clarity Turbid (Clear); Urine Color Light-Yellow (Yellow); Urine Glucose NEGATIVE (Negative); Urine Mucus Slight /HPF (None Seen); Urine Protein NEGATIVE (Negative); Urine RBC None Seen /HPF (None Seen); Urine Urobilinogen Normal (Normal); Urine pH 6.5 (5.0-7.0)
--- NOTE | 2023-01-09 02:55 | ER ---
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 Patient stated passed out and hit head on the nightstand while walking back from the restroom. Patient stated knocked his right front tooth veneer off,has redness to left upper arm and left side forehead from the fall. 00:17 Coronavirus screen: Vaccine status: Patient reports receiving the 2nd dose of the covid pf1 vaccine. Travelogy Client denies travel out of the [place] in the last 14 days. Client presents with at least one sign or symptom that may indicate coronavirus-19. Ebola Screen: Patient negative for fever greater than or equal to 101.5 degrees Fahrenheit, and additional compatible Ebola Virus Disease symptoms. Initial Sepsis Screen: Does the patient meet any 2 criteria? No. Patient's initial sepsis screen is negative. Does the patient have a suspected source of infection? No. Patient's initial sepsis screen is negative. Risk Assessment: Do you want to hurt yourself or someone else? Patient reports no desire to harm self or others. 00:17 Method Of Arrival: Ambulatory pf1 00:17 Acuity: KERI 3 pf1 00:20 Onset of symptoms was January 09, 2023. ha1 Historical: - Allergies: 00:38 No Known Allergies; pf1 - Immunization history:: Adult Immunizations up to date, Client reports receiving the 2nd dose of the Covid vaccine, Last tetanus immunization: < 10 years ago Flu vaccine is up to date. - Social history:: Smoking status: Reported history of juuling and/or vaping. Patient uses alcohol, occasionally. Patient/guardian denies using street drugs. - Family history:: not pertinent. Screenin:18 [facility] ED Fall Risk Assessment (Adult) History of falling in the last 3 months, ha1 including since admission No falls in past 3 months (0 pts) Confusion or Disorientation No (0 pts) Intoxicated or Sedated No (0 pts) Impaired Gait No (0 pts) Mobility Assist Device Used No (0 pt) Altered Elimination No (0 pt) Score/Fall Risk Level 0 - 2 = Low Risk Oriented to surroundings, Maintained a safe environment, Educated pt \T\ family on fall prevention, incl call for assistance when getting out of bed, Hourly rounding (assess needs \T\ fall precautionary measures) done. Abuse screen: Denies threats or abuse. Denies injuries from another. Nutritional screening: No deficits noted. Tuberculosis screening: No symptoms or risk factors identified. Assessment: 00:20 General: Appears comfortable, Behavior is calm, cooperative. Pain: Denies pain. Neuro: ha1 Level of Consciousness is awake, alert, obeys commands, Oriented to person, place, time, situation. Neuro: Reports a syncopal episode. Cardiovascular: Capillary refill < 3 seconds Patient's skin is warm and dry. Respiratory: Airway is patent Respiratory effort is even, unlabored, Respiratory pattern is regular, symmetrical. GI: Abdomen is flat, non-distended, Reports diarrhea. : No signs and/or symptoms were reported regarding the genitourinary system. Derm: Skin is pink, warm \T\ dry. Musculoskeletal: Circulation, motion, and sensation intact. Range of motion: intact in all extremities. 00:50 Reassessment: Patient appears in no apparent distress at this time. No changes from [facility] previously documented assessment. Patient and/or family updated on plan of care and expected duration. Pain level reassessed. Patient is alert, oriented x 3, equal unlabored respirations, skin warm/dry/pink. 01:53 Reassessment: Patient appears in no apparent distress at this time. Patient and/or jw7 family updated on plan of care and expected duration. Pain level reassessed. Patient is alert, oriented x 3, equal unlabored respirations, skin warm/dry/pink. Patient states feeling better. Patient states symptoms have improved. 03:00 Reassessment: Patient appears in no apparent distress at this time. No changes from [facility] previously documented assessment. Patient and/or family updated on plan of care and expected duration. Pain level reassessed. Patient is alert, oriented x 3, equal unlabored respirations, skin warm/dry/pink. Vital Signs: 00:17 BP 122 / 82; Pulse 68; Resp 16; Temp 97.7; Pulse Ox 97% on R/A; Weight 81.65 kg; Height pf1 5 ft. 7 in. ; Pain 0/10; 00:30 BP 122 / 71; Pulse 73; Resp 18 S; Pulse Ox 98% on R/A; jw7 01:40 BP 125 / 83; Pulse 72; Resp 16 S; Pulse Ox 100% on R/A; jw7 02:30 BP 121 / 85; Pulse 70; Resp 16 S; Pulse Ox 99% on R/A; jw7 00:17 Body Mass Index 28.19 (81.65 kg, 170.18 cm) pf1 00:17 Pain Scale: Adult pf1 ED Course: 00:08 Patient arrived in ED. gm2 00:09 Brain Richard MD is Attending Physician. sp4 00:18 Arm band placed on right wrist. ha1 00:20 Patient has correct armband on for positive identification. Bed in low position. Call ha1 light in reach. Side rails up X 1. Adult w/ patient. 00:30 Inserted saline lock: 20 gauge in right antecubital area, using aseptic technique. ha1 Blood collected. 00:32 Radiology exam delayed due to lab results not completed at this time. (BUN/Creatinine) eh4 IV insertion attempt and/or patient not having appropriate IV at this time. 00:38 Triage completed. pf1 00:57 CBC with Diff Sent. ha1 00:57 CMP Sent. ha1 00:57 Lipase Sent. ha1 01:18 EKG done, by ED staff, reviewed by Brain Richard MD. jw7 01:18 Troponin High Sensitivity Sent. jw7 01:18 C-Reactive Protein Sent. jw7 01:53 CT Head Brain wo Cont In Process Unspecified. EDMS 02:05 CT Chest, Abdomen, Pelvis - W/Contrast In Process Unspecified. EDMS 03:07 No provider procedures requiring assistance completed. IV discontinued, intact, jw7 bleeding controlled, No redness/swelling at site. Pressure dressing applied. 03:07 Provided Education on: discharge instructions, and medication usage. jw7 Administered Medications: 00:30 CANCELLED (Duplicate Order): mg IVP once; dilute with 10 mL 0.9% NaCl; sp4 give over 2 minutes 00:30 CANCELLED (Duplicate Order): ondansetron 4 mg IVP once; over 2 minutes sp4 01:00 Drug: NS 0.9% IV 1000 ml IV at 1 bolus Per protocol; 1000 mL bolus Route: IV; Rate: 1 ha1 bolus; Site: right antecubital; 03:08 Follow up: Response: No adverse reaction; IV Status: Completed infusion; IV Intake: jw7 1000ml Medication: 01:58 VIS not applicable for this client. ha1 Intake: 03:08 IV: 1000ml; Total: 1000ml. jw7 Outcome: 02:53 Discharge ordered by . sp4 03:07 Discharged to home ambulatory, with family, jw7 03:07 Condition: stable 03:07 Discharge instructions given to patient, Instructed on discharge instructions, follow up and referral plans. medication usage, Demonstrated understanding of instructions, follow-up care, medications, Prescriptions given X 2, 03:11 Patient left the ED. ha1 Signatures: Dispatcher [employer] EDMS Veda Hdz RN RN jw7 Leonor Lawrence RN RN ha1 Bassam Julien [facility] Chanel Radford RN RN pf1 Brain Richard MD MD sp4 Leanne Arechiga 2
--- NOTE | 2023-01-09 02:55 | EDPHYS ---
Physician Documentation [facility] Name: Musa Noland Age: 47 yrs Sex: Male : 1975 Arrival Date: 01/09/2023 Time: 00:02 Bed 6 Private MD: ED Physician Brain Richard HPI: 01/09 00:09 This 47 yrs old Male presents to ER via Unassigned with complaints of sp4 Diarrhea, Fainting, Head Injury-Adult. 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 Patient states he fell down striking forehead on the night stand. Patient was out for several seconds. . Historical: - Allergies: 00:38 No Known Allergies; pf1 - Immunization history:: Adult Immunizations up to date, Client reports receiving the 2nd dose of the Covid vaccine, Last tetanus immunization: < 10 years ago Flu vaccine is up to date. - Social history:: Smoking status: Reported history of juuling and/or vaping. Patient uses alcohol, occasionally. Patient/guardian denies using street drugs. - Family history:: not pertinent. ROS: 00:32 Constitutional: Negative for fever, chills, and weight loss, positive diarrhea positive sp4 diaphoresis positive syncopal episode positive for positive head injury positive for head contusion. Eyes: Negative for injury, pain, redness, and discharge, ENT: Negative for injury, pain, and discharge, 00:32 All other systems are negative, Exam: 00:32 Constitutional: This is a well developed, well nourished patient who is awake, alert, sp4 and in no acute distress. Head/Face: Normocephalic, atraumatic. Eyes: Pupils equal round and reactive to light, extra-ocular motions intact. Lids and lashes normal. Conjunctiva and sclera are not injected. Cornea within normal limits. Periorbital areas with no swelling, redness, or edema. ENT: Nares patent. No nasal discharge, no septal abnormalities noted. Tympanic membranes are normal and external auditory canals are clear. Oropharynx with no redness, swelling, or masses, exudates, or evidence of obstruction, uvula midline. Mucous membranes moist. Tooth number 8, there is missing veneer secondary to fall and facial injury at home. Patient knocked out his veneer. Neck: Trachea midline, no thyromegaly or masses palpated, and no cervical lymphadenopathy. Supple, full range of motion without nuchal rigidity, or vertebral point tenderness. Chest/axilla: Normal chest wall appearance and motion. Nontender with no deformity. No lesions are appreciated. Cardiovascular: Regular rate and rhythm with a normal S1 and S2. No gallops, murmurs, or rubs. Normal PMI, no JVD. No pulse deficits. Respiratory: Lungs have equal breath sounds bilaterally, clear to auscultation and percussion. No rales, rhonchi or wheezes noted. No increased work of breathing, no retractions or nasal flaring. Abdomen/GI: Soft, non-tender, with normal bowel sounds. No distension or tympany. No guarding or rebound. No evidence of tenderness throughout. Back: No spinal tenderness. No costovertebral tenderness. Skin: Warm, dry with normal turgor. Normal color with no rashes, no lesions, and no evidence of cellulitis. MS/ Extremity: Pulses equal, no cyanosis. Neurovascular intact. Full, normal range of motion. Neuro: Awake and alert, GCS 15, oriented to person, place, time, and situation. Cranial nerves II-XII grossly intact. Motor strength 5/5 in all extremities. Sensory grossly intact. Psych: Awake, alert, with orientation to person, place and time. Behavior, mood, and affect are within normal limits 02:04 ECG was reviewed by the Attending Physician. EKG time 0 115, there is no ST elevation sp4 or depression, normal sinus rhythm at a rate of 70. No ectopy Vital Signs: 00:17 BP 122 / 82; Pulse 68; Resp 16; Temp 97.7; Pulse Ox 97% on R/A; Weight 81.65 kg; Height pf1 5 ft. 7 in. ; Pain 0/10; 00:30 BP 122 / 71; Pulse 73; Resp 18 S; Pulse Ox 98% on R/A; jw7 01:40 BP 125 / 83; Pulse 72; Resp 16 S; Pulse Ox 100% on R/A; jw7 02:30 BP 121 / 85; Pulse 70; Resp 16 S; Pulse Ox 99% on R/A; jw7 00:17 Body Mass Index 28.19 (81.65 kg, 170.18 cm) pf1 00:17 Pain Scale: Adult pf1 MDM: 00:11 Patient medically screened. sp4 02:43 ED course: CT head - CLINICAL HISTORY: syncope COMPARISON: None available TECHNIQUE: sp4 Axial CT of the head obtained from the skull apex to the skull base without contrast. This exam was performed according to our departmental dose-optimization program, which includes automated exposure control, adjustment of the mA and/or kV according to patient size and/or use of iterative reconstruction technique. FINDINGS: No acute intracranial hemorrhage identified. No mass, mass effect, shift of the midline, abnormal extra-axial fluid collection or CT evidence of acute ischemic change identified. The ventricular system is unremarkable. No acute abnormalities of the supratentorial white matter, basal ganglia, cerebellum, or brainstem. The visualized paranasal sinuses and the mastoids are relatively well aerated. No skull fracture identified. Visualized orbits and globes are unremarkable. IMPRESSION: 1. No acute intracranial abnormality identified. . ED course: CT abdomen, pelvis , chest - IMPRESSION: 1. Diffuse wall thickening of the colon with submucosal fatty infiltration. Scattered reticulonodular the colon. These findings could be seen with chronic inflammatory colitis. A component of acute colitis could contribute to this appearance. 2. Mild wall thickening of the proximal small bowel with shotty superior mesenteric lymph nodes. These findings could be seen with nonspecific enteritis. 3. Enlarged prostate. 4. Coronary artery atherosclerosis. . 02:56 Differential diagnosis: Nonspecific abd pain, gastritis, cholecystitis, pancreatitis, sp4 appendicitis, diverticulitis, viral gastroenteritis, gastroenteritis. Data reviewed: vital signs, nurses notes, lab test result(s), CBC, drug level(s), Flu: negative EKG, radiologic studies, CT scan. ED course: Work-up is basically unremarkable except for mild gastroenteritis and colitis revealed by CT scan. Patient will be advised p.o. hydration, Lomotil as needed, Zofran as needed, 3 days off work, clear liquid diet for 24 hours. Will advise patient to see his primary care physician for regular screening appointments.. 01/09 00:11 Order name: COVID-19 SARS RT PCR; Complete Time: 02:01 sp4 01/09 00:11 Order name: Influenza Screen (a \T\ B); Complete Time: 02:01 sp4 01/09 00:23 Order name: CBC with Diff; Complete Time: 01:26 sp4 01/09 00:23 Order name: CMP; Complete Time: 02:44 sp4 01/09 00:23 Order name: Lipase; Complete Time: 02:44 sp4 01/09 00:23 Order name: Urinalysis w/ reflexes; Complete Time: 02:44 sp4 01/09 01:06 Order name: Troponin High Sensitivity; Complete Time: 02:44 EDMS 01/09 01:06 Order name: C-Reactive Protein; Complete Time: 02:44 EDMS 01/09 00:31 Order name: CT Chest, Abdomen, Pelvis - W/Contrast [facility] 01/09 00:31 Order name: CT Head Brain wo Cont sp4 01/09 00:32 Order name: EKG; Complete Time: 00:32 4 01/09 00:23 Order name: IV Saline Lock; Complete Time: 00:57 sp4 01/09 00:23 Order name: Labs collected and sent; Complete Time: 00:57 4 01/09 00:32 Order name: EKG - Nurse/Tech; Complete Time: 01:18 sp4 EC:04 Rate is 70 beats/min. Rhythm is regular, Normal Sinus Rhythm. QRS [place] is Normal. MS sp4 interval is normal. QRS interval is normal. QT interval is normal. No Q waves. T waves are Normal. No ST changes noted. Clinical impression: Normal ECG. Interpreted by me. Reviewed by me. Administered Medications: 00:30 CANCELLED (Duplicate Order): oobfrxtkde19 mg IVP once; dilute with 10 mL 0.9% NaCl; sp4 give over 2 minutes 00:30 CANCELLED (Duplicate Order): ondansetron 4 mg IVP once; over 2 minutes sp4 01:00 Drug: NS 0.9% IV 1000 ml IV at 1 bolus Per protocol; 1000 mL bolus Route: IV; Rate: 1 ha1 bolus; Site: right antecubital; 03:08 Follow up: Response: No adverse reaction; IV Status: Completed infusion; IV Intake: jw7 1000ml Disposition Summary: 01/09/23 02:53 Discharge Ordered Problem: new sp4 Symptoms: have improved sp4 Condition: Stable sp4 Diagnosis - Infectious gastroenteritis and colitis, unspecified sp4 - Acute diarrheal illness, syncopal episode sp4 Followup: sp4 - With: Private Physician - When: 7 - 10 days - Reason: Recheck today's complaints Discharge Instructions: - Discharge Summary Sheet sp4 - Viral Gastroenteritis, Adult, [id number] sp4 - Clear Liquid Diet, Adult, [id number] sp4 Forms: - Work release form ha1 - Patient Portal Instructions sp4 Prescriptions: - Lomotil 2.5-0.025 mg Oral tablet - take 1 tablet ORAL route every 6 hours As needed PRN diarrhea; 30 tablet; sp4 Refills: 0, Product Selection Permitted - ondansetron 8 mg Oral Tablet,disintegrating - take 1 tablet ORAL route every 8 hours PRN nausea; 30 tablet; Refills: 0, sp4 Product Selection Permitted Signatures: Dispatcher [employer] Leonor Ying RN RN ha1 Chanel Radford RN RN pf1 Brain Richard MD MD sp4 Veda Hdz RN jw7 Corrections: (The following items were deleted from the chart) 00:30 00:23 Famotidine IVP 20 mg IVP once; dilute with 10 mL 0.9% NaCl; give over 2 minutes sp4 ordered. sp4 00:30 00:23 Ondansetron IVP 4 mg IVP once; over 2 minutes ordered. sp4 sp4 01:06 00:32 Troponin High Sensitivity+C.LAB.BRZ ordered. EDMS EDMS 01:06 00:32 C-REACTIVE PROTEIN+C.LAB.BRZ ordered. EDMS EDMS
[2023-01-09 04:06] VITALS: TEMP 97.7
[2023-01-09 04:08] VITALS: BP 121/85; O2SAT 99
--- NOTE | 2023-01-09 13:29 | RAD REPORT ---
EXAM DESCRIPTION: CT - Chest Abdomen Pelvis W Cont - 01/09/2023 5:01 am CLINICAL HISTORY: Abd pain, diarrhea, weakness COMPARISON: None Available. TECHNIQUE: CT of the chest, abdomen and pelvis performed following IV administration of iodinated co ntrast. This exam was performed according to our departmental dose-optimization program, which includ es automated exposure control, adjustment of the mA and/or kV according to patient size and/or use of iterative reconstruction technique. FINDINGS: Chest: Thyroid: No abnormalities of the visualized thyroid. Great Vessels: Great vessels have normal anatomic configuration. Thoracic Aorta: No abnormalities of the thoracic aorta identified. Pulmonary arteries: No central filling defects. Heart: Coronary artery atherosclerosis. Lymph Nodes: No enlarged mediastinal lymph nodes identified. Esophagus: No abnormalities of the esophagus identified Other: No additional findings. Lungs: No airspace opacities identified. Pleura: No pleural effusion or pneumothorax. Trachea/Airways: No abnormalities of the visualized trachea or airways. Abdomen: Liver: The liver has normal size and density. No intrahepatic mass or biliary dilatation. Gallbladder: No calcified gallstones. Spleen, Pancreas, and Adrenal Glands: The spleen, pancreas, and adrenal glands are unremarkable. Kidneys: The kidneys have normal size and contour without evidence of solid mass or hydronephrosis. Renal cyst. No follow-up imaging recommended. Vasculature: Aortoiliac atherosclerosis. IVC is unremarkable. The portal vein is patent. The proxim al visceral and renal arteries are patent. Stomach: The stomach and duodenum have normal course. Other: No free intraperitoneal air. No free fluid. Pelvis: Bladder: Urinary bladder is unremarkable. Bowel: No dilated loops of large or small bowel. Diffuse wall thickening of the colon with submucos al fatty infiltration. Scattered reticulonodular the colon. Mild wall thickening of the proximal smal l bowel with shadowing superior mesenteric lymph nodes. Appendix: Normal appendix. Pelvis: Enlarged prostate. Bones: No destructive bone lesions identified. IMPRESSION: 1. Diffuse wall thickening of the colon with submucosal fatty infiltration. Scattered reticulonodular the colon. These findings could be seen with chronic inflammatory colitis. A componen t of acute colitis could contribute to this appearance. 2. Mild wall thickening of the proximal small bowel with shotty superior mesenteric lymph nodes. Th taina findings could be seen with nonspecific enteritis. 3. Enlarged prostate. 4. Coronary artery atherosclerosis. Electronically signed by: Peter Rock DO 01/09/2023 02:27 AM TRADITIONAL [employer]INESE HERBALIST M Due to temporary technical issues with the PACS/Fluency reporting system, reports are being signed by the in house radiologist without review as a courtesy to ensure prompt reporting. The interpreting r adiologist is fully responsible for the content of the report.
--- NOTE | 2023-01-09 14:11 | RAD REPORT ---
EXAM DESCRIPTION: CT - Head Brain Wo Cont - 01/09/2023 5:01 am CLINICAL HISTORY: Syncope COMPARISON: None available TECHNIQUE: Axial CT of the head obtained from the skull apex to the skull base without contrast. Thi s exam was performed according to our departmental dose-optimization program, which includes automate d exposure control, adjustment of the mA and/or kV according to patient size and/or use of iterative reconstruction technique. FINDINGS: No acute intracranial hemorrhage identified. No mass, mass effect, shift of the midline, a bnormal extra-axial fluid collection or CT evidence of acute ischemic change identified. The ventricu lar system is unremarkable. No acute abnormalities of the supratentorial white matter, basal gangli a, cerebellum, or brainstem. The visualized paranasal sinuses and the mastoids are relatively well aerated. No skull fracture id entified. Visualized orbits and globes are unremarkable. IMPRESSION: 1. No acute intracranial abnormality identified. Electronically signed by: Peter Rock DO 01/09/2023 02:19 AM IRONER OR PRESSER M Due to temporary technical issues with the PACS/Fluency reporting system, reports are being signed by the in house radiologist without review as a courtesy to ensure prompt reporting. The interpreting r adiologist is fully responsible for the content of the report.
--- NOTE | 2023-01-09 17:21 | EKG ---
Test Date: 2023-01-09 Test Time: 01:15:30 Theatrical Dresser: KATY MEASUREMENT RESULTS: Intervals: Rate: 70 MT: 182 QRSD: 94 QT: 390 QTc: 421 [place]: P: 62 MT: 182 QRS: 53 T: 63 INTERPRETIVE STATEMENTS: Normal sinus rhythm Nonspecific T wave abnormality Abnormal ECG No previous ECG available for comparison Electronically Signed On 01-09-23 17:19:50 [employer]ARKING [employer] E[employer]CEMENT OFFICER by Navneet Gimenez
== END 2023-01-09 03:11 | disposition home or self-care (01) ==
LOC: ER 00:02
DX: A09 Infectious gastroenteritis and colitis, unspecified (principal); R55 Syncope and collapse; Z11.52 Encounter for screening for COVID-19
CPT/HCPCS: 96361; 93005; 85025; 81001; 36415; 84484; 83690; 80053; 87635; 86140; 87804 ×2; 70450; 71260; 74177; 96360; 99284; Q9967; J7030